=== PATIENT | male | born 1955 | race Caucasian/White ===

== ENCOUNTER 2018-10-18 09:28 | Emergency (ER) | payer MEDICARE, MEDICAID, SELFPAY ==
[2018-10-18 09:32] VITALS: BP 128/115; PULSE 75; RESP 18; TEMP 36.8; O2SAT 98
--- NOTE | 2018-10-18 09:46 | DI.RAD_ITS ---
SYMPTOM/DIAGNOSIS: ATRAUMATIC RT SHOULDER PAIN, WORSE WITH MVT RIGHT SHOULDER: Multiple views. There is mild spurring at the glenohumeral joint and mild hypertrophic changes seen at the acromioclavicular joint. The bones are intact and normally mineralized. The soft tissues are unremarkable. IMPRESSION: Osteoarthritis of the right shoulder.
--- NOTE | 2018-10-18 09:47 | DI.RAD_ITS ---
SYMPTOM/DIAGNOSIS: ATRAUMATIC RT SHOULDER PAIN, WORSE WITH MVT CHEST: PA and lateral. Comparison 01/20/17 The heart is normal in size. The lungs are clear. The mediastinal structures and pleura appear intact. CONCLUSION: Normal chest.
--- NOTE | 2018-10-18 09:49 | ED.GENADUL_ITS ---
Discharge Plan Disposition Patient Disposition: HOME Condition: Good Discharge Details Chief Complaint: Orthopedic Clinical Impression: Acute pain of right shoulder Primary Care Provider: Joon Cool ED Provider: Trever Baron Home Meds and New Rx's Prescriptions: New cyclobenzaprine 10 mg tablet 10 mg PO TID Qty: 14 RF: 0 acetaminophen [Mapap Extra Strength] 500 MG tablet 1,000 mg PO Q6H 5 Days Qty: 60 RF: 0 lidocaine [Lidoderm] 1 PATCH patch 1 patch Topical Q24H Qty: 4 RF: 0 ibuprofen [Motrin IB] 200 MG tablet 600 mg PO Q6H 5 Days Qty: 60 RF: 0 No Action omeprazole magnesium [Prilosec OTC] 20 MG tablet,delayed release (DR/EC) 20 mg PO DAILY RF: 0 acetaminophen [Acetaminophen Extra Strength] 500 MG tablet 1,000 mg PO q6 hr RF: 0 omeprazole 40 mg capsule,delayed release(DR/EC) 40 mg PO DAILY Qty: 90 RF: 3 Discharge Instructions Instructions: Shoulder Pain (ED) Additional Instructions: Please take medications as directed. Please do not operate any heavy machinery or climb ladders or operate firearms while taking the Flexeril. If you notice any worsening of your symptoms, or any new symptoms such as vomiting, diarrhea, fever, chills, shortness of breath, chest pain, numbness, weakness, or fainting , please return immediately to the emergency department for reevaluation. Please follow up with your primary care provider as soon as possible for reassessment and reevaluation. As always, it was a pleasure participating in your medical care today. Referrals: Joon Cool. [Primary Care Provider] - Discharge Data Discharge Date/Time-TO BE ENTERED AT DEPARTURE: 10/18/18 12:00 Medical Decision Making This is a pleasant 63-year-old male who presents for right shoulder pain. He denies any trauma, he does have a history of arthritis. Physical exam demonstrates concern for rotator cuff injury, versus arthritis. Pain is made worse with Neer's testing. Symptoms are notably worse with movement internal and external rotation of the shoulder. Strength is otherwise normal, no signs of neurologic deficit. This patient's symptoms are unlikely to be secondary to a cardiac etiology but because of his age and risk factors, we did get a troponin EKG, both of which are normal. Patient's physical exam is clinically inconsistent with an ACS etiology, x-rays were performed and do demonstrate evidence of notable arthritis in the shoulder, but no evidence of acute fracture or other abnormality. We did utilize NSAIDs and Lidoderm patch, and the patient had mild improvement of his symptoms with this. I did discuss potential opiates and the patient does not want any opiates at this time. Patient does have a sling at home and I recommended that he do utilize this in the time being. I feel that his signs and symptoms are clinically consistent and concerning for potential rotator cuff injury as well as mild impingement syndrome. The patient does have follow-up with his primary care provider within the next 3 days, which I recommend he does keep. We discussed red flags which to return, the importance of continued NSAID use, and potential orthopedic follow-up if his symptoms do not improve the time he follows up with his PCP. I have extensively reviewed the treatment plan and discharge instructions with the patient and their family. I have addressed all patient concerns at this time. The patient and family was made aware of what symptoms to monitor for that would warrant a return to the emergency department. Discussed the plan with the patient and family, they demonstrate verbal understanding and agreement with our assessment and plan at this time. EKG 9: 47 Rate 68, IA 156, QTc 419, QRS 104, sinus rhythm, no significant ST elevations or depressions, inverted T wave in lead III, no Q waves, no significant abnormalities. RIGHT SHOULDER: Multiple views. There is mild spurring at the glenohumeral joint and mild hypertrophic changes seen at the acromioclavicular joint. The bones are intact and normally mineralized. The soft tissues are unremarkable. IMPRESSION: Osteoarthritis of the right shoulder. The heart is normal in size. The lungs are clear. The mediastinal structures and pleura appear intact. CONCLUSION: Normal chest. HPI General Date/Time Provider Initiated Documentation: 10/18/18 09:35 . HPI Narrative: This is a pleasant 63-year-old male who presents today for evaluation of right-sided shoulder and arm pain. Patient states that the pain began around 10 AM, it seemed to come out of nowhere as he was moving his arm and shoulder around. Is located in his right shoulder, he describes it as sharp, with some associated tingling. It is worse with movement of the shoulder in every direction. He did take some Tylenol, but this had no improvement of his symptoms. Patient has known history of arthritis in the right shoulder, but denies any recent trauma. He denies any significant neck pain, or trauma to the neck. He denies any radiation to any other component of his chest neck or hand. He denies any other complaints at this time. He denies any other modifying factors. He denies any recent surgeries, he denies any current IV or illicit drug use,. Related Data Home Medications Medication Instructions Recorded Confirmed omeprazole magnesium [Prilosec OTC] 20 mg PO DAILY 02/03/17 12/02/17 acetaminophen [Acetaminophen Extra 1,000 mg PO q6 hr tab-cap 08/30/17 12/02/17 Strength] omeprazole 40 mg capsule,delayed 40 mg PO DAILY #90 cap 07/13/18 release acetaminophen [Mapap Extra 1,000 mg PO Q6H 5 Days #60 tab 10/18/18 Strength] cyclobenzaprine 10 mg PO TID #14 tab 10/18/18 ibuprofen [Motrin Ib] 600 mg PO Q6H 5 Days #60 tab 10/18/18 lidocaine [Lidoderm] 1 patch TOPICAL Q24H #4 patch 10/18/18 Previous Rx's Medication Instructions Recorded omeprazole 40 mg capsule,delayed 40 mg PO DAILY #90 cap 07/13/18 release acetaminophen [Mapap Extra 1,000 mg PO Q6H 5 Days #60 tab 10/18/18 Strength] cyclobenzaprine 10 mg PO TID #14 tab 10/18/18 ibuprofen [Motrin Ib] 600 mg PO Q6H 5 Days #60 tab 10/18/18 lidocaine [Lidoderm] 1 patch TOPICAL Q24H #4 patch 10/18/18 Allergies Allergy/AdvReac Type Severity Reaction Status Date / Time No Known Allergies Allergy Unverified 03/13/18 09:05 General Stated Complaint: Orthopedic VALENTÍN: 4 Review of Systems Review of Systems All systems reviewed & are unremarkable except as noted in HPI and below PFSH Chronic low back pain Depressive disorder Smoker CT/SPINE (~2003) Colonoscopy - MAC (~2006) Colonoscopy - MAC (02/07/17) LAMINECTOMY MRI/SPINE (~2006) Meniscectomy NASAL POLYP REMOVAL Repair of inguinal hernia Spinal Fusion (~03/1997) Family History Mother No problems noted. Father No problems noted. Sister No problems noted. Sister No problems noted. Sister No problems noted. Grandfather No problems noted. Grandfather No problems noted. Grandmother No problems noted. Sister No problems noted. Grandmother Diabetes Son No problems noted. Son No problems noted. Social History Smoking/Tobacco Use Status: Current-Occasional Exam Narrative Exam Narrative: 1.Const: Well-nourished, Well-developed, appearing stated age 2.Eyes: PERRL, no conjunctival injection, and symmetrical lids. 3.ENT: Atraumatic external nose and ears. Moist MM. Neck: Symmetric, trachea midline, No thyromegaly. 4.CVS: +S1/S2, No murmurs or gallops. Peripheral pulses 2+ and equal in all extremities. Brisk capillary refill in all extremities. 5.RESP: Unlabored respiratory effort. Clear to auscultation bilaterally. No wheezes rales or rhonchi 6.GI: Soft, Nontender/Nondistended, No hepatosplenomegaly. No guarding or rebound. 7.MSK: Normocephalic/Atraumatic, Extremities w/o deformity or ttp No cyanosis or clubbing, Normal movement of all extremities no midline tenderness to palpation over the CTLS spine. Normal ROM in flexion, extension, side bend, and rotation. Patient has +5 out of 5 strength in the lower extremities in dorsiflexion and plantarflexion, knee flexion and extension, hip flexion and extension. There is +2 over 2 dorsalis pedis pulses bilaterally. There is normal sensation to the skin with light touch at the foot, knee, and hip. Normal saddle sensation. Good sensation over the deep sural nerve area bilaterally. Rectal exam deferred. Reflexes are +2 over 4 in the patellar reflex bilaterally. +5 out of 5 strength in the medial, ulnar, radial nerve distribution bilaterally in the hands as well as intact light touch sensation to these dermatomes on the hands. Right shoulder: Patient does have notable worsening of his pain with internal and external rotation of the humerus, as well as abduction, abduction, and flexion and extension. Symptoms are made worse with NEERS testing. No significant focal tenderness on palpation of the shoulder. Normal sensation throughout. No evidence of decreased dermatomal sensation. Capillary refill is brisk, hand dealer sales manager is normal. Normal pronation and supination of the wrist and hand. 8.Skin: Warm, Dry. No rashes or lesions. No evidence suggestive of herpes zoster 9.Neuro: digital business analyst II-XII grossly intact. Sensation grossly intact, no focal neurologic deficits. All 6 cardinal planes of vision are fully intact. No evidence of rotatory or vertical nystagmus. The patient demonstrated a normal [id number], good dexterity. There was no evidence of dysdiadochokinesia. Patient was able to ambulate without difficulty. There was no wide-based gait. Romberg, and [id number] are both normal on testing. Sensation was intact bilaterally as well as muscle strength bilaterally for all extremities. Patient was able to verbalize butter cup with no slurring, or miss pronunciation. 10.Psych: (AAO) x3. Appropriate mood and affect Course Vital Signs Temperature 36.8 C 10/18/18 09:32 Pulse 75 10/18/18 09:32 Respiratory Rate 18 10/18/18 09:32 Blood Pressure 128/115 H 10/18/18 09:32 Pulse Oximetry 98 10/18/18 09:32 Temperature 36.8 C 10/18/18 09:32 Temperature Source Skin 10/18/18 09:32 Pulse 75 10/18/18 09:32 Respiratory Rate 18 10/18/18 09:32 Respiratory Effort 10/18/18 09:35 Blood Pressure 128/115 H 10/18/18 09:32 Blood Pressure Position Sitting 10/18/18 09:32 Pulse Oximetry 98 10/18/18 09:32 Oxygen Delivery Method Room Air 10/18/18 09:32 Oxygen Flow Rate 0 10/18/18 09:32 Pain Level 8 10/18/18 09:32
[2018-10-18 10:18] LABS: Abs Immature Grans 0.01 k/cumm (0.0-0.09); Absolute Basophil Count 0.12 k/cumm (0.0-0.2); Absolute Eosinophil Count 0.21 k/cumm (0.0-0.7); Absolute Lymphocyte Count 1.08 k/cumm (1.2-3.4); Absolute Monocyte Count 0.48 k/cumm (0.11-0.7); Absolute Neutrophil Count 3.45 k/cumm (1.2-6.7); Basophils % 2.2; Eosinophils % 3.9; HCT 42.8 % (40.0-50.0); Immature Grans % 0.2; Lymphocytes % 20.2; Mean Corp. HGB Concentration 32.7 g/dL (32.0-36.0); Mean Corpuscular Volume 91.6 fL (80-95); Mean Platelet Volume 11.9 fL (8.0-11.0); Neutrophils % 64.5; Platelet Count 179 x1000/uL (130-400); RBC 4.67 m/cumm (4.50-6.00); RBC Distribution Width 12.8 % (11.8-14.1); White Blood Cell Count 5.35 k/cumm (4.4-10.8)
[2018-10-18] MEDS: Aspirin 81 MG CHEW 324 MG CH (10:18)
[2018-10-18] MEDS: Cyclobenzaprine 10 MG TAB PO (10:18)
[2018-10-18] MEDS: Lidocaine 5% Patch 1 PATCH TP (10:19)
[2018-10-18] MEDS: Ketorolac 30 MG/ML VIAL 15 MG IVP (10:19)
--- NOTE | 2018-10-18 10:28 | NUR.NOTE ---
# 18 right ac, labs sent, placed on continous cardiac monitoring, patient reports 05/15, patient medicated per MD order. Nursing Note:
[2018-10-18 10:31] VITALS: BP 133/72; PULSE 56; O2SAT 95
[2018-10-18 10:41] LABS: ALT 35 U/L (12-78); AST 19 U/L (15-37); Albumin 3.9 g/dL (3.4-5.0); Alkaline Phosphatase 71 U/L (46-116); Anion Gap 7.1 mmol/L (3-11); BUN 17 mg/dL (7-18); Bilirubin, Total 0.4 mg/dL (0.2-1.0); CO2 30.9 mmol/L (21.0-32.0); Calcium 8.8 mg/dL (8.5-10.1); Chloride 104 mmol/L (98-107); Glucose 102 mg/dL (70-100); Potassium 4.3 mmol/L (3.5-5.1); Sodium 142 mmol/L (136-145)
[2018-10-18 10:43] LABS: Troponin I < 0.02 ng/mL (0.00-0.06)
--- NOTE | 2018-10-18 11:16 | NUR.NOTE ---
returned from xray pain is 7/10, patient visibly uncomfortable Nursing Note:
[2018-10-18 11:17] VITALS: BP 154/82; PULSE 64; RESP 20; O2SAT 96
--- NOTE | 2018-10-18 12:10 | NUR.NOTE ---
MD re-examined patient, pain improved to 1/10 tolerable for patient. IV dc'd discharge and follwo up instruciton provided to patient, patient home with Nursing Note:
== END 2018-10-18 12:00 | disposition home or self-care (01) ==
PROVIDERS: Emergency Provider Student in an Organized Health Care Education/Training Program; PCP Family Medicine
DX: M25.511 Pain in right shoulder (principal); M79.621 Pain in right upper arm
CPT/HCPCS: 36415; 80053; 93005; 96374; 99285; 71046; 73030; 84484; 85025; 93010; J1885

== ENCOUNTER 2018-11-02 11:02 | Emergency (ER) | payer MEDICARE, MEDICAID, SELFPAY ==
[2018-11-02] VITALS (7 sets, daily range): BP systolic 130–175; BP diastolic 72–94; PULSE 63–97; RESP 12–20; TEMP 36.8; O2SAT 95–99
--- NOTE | 2018-11-02 11:09 | DI.CT_ITS ---
SYMPTOM/DIAGNOSIS: SUPRAPUBIC/LLQ PAIN, REFLECTS HIS H/O DIVERTICULITIS. CT ABDOMEN AND PELVIS: The study was conducted according to the usual protocol with intravenous administration of 100 cc Omnipaque 350. There is no acute abnormality involving the lung bases. There is no pleural effusion. The heart is not enlarged. There is no pericardial effusion. The liver, gallbladder, pancreas and spleen are intact. There is no evidence of bowel obstruction. Diffuse diverticulosis is demonstrated particularly involving the distal descending and rectosigmoid colonic segments. There is wall thickening and increased absorption in the adjacent fat is identified. The findings would be consistent with diverticulitis. In addition to the above there is wall thickening extending into the descending colon where multiple diverticula are also seen. Again there is no evidence of intestinal perforation. There is no evidence of free air or free fluid in the intraperitoneal space. There is no evidence of bowel obstruction. The appendix appears normal. The reproductive organs as visualized appear intact with note made of prostatic enlargement and there is some prominence of the seminal vesicles. There is no evidence of a inguinal hernia. A tiny fat containing umbilical hernia is demonstrated. There is no evidence of an aortic aneurysm. Note is made of multiple compression fractures involving the lumbar spine. A mack and pedicle screw device is in place. No acute superimposed bony abnormality is apparent and there is diffuse degenerative disc disease. SUMMARY: Findings consistent with diverticulosis and diverticulitis. This case was discussed with the ER provider immediately following completion of the study.
--- NOTE | 2018-11-02 11:11 | W.ED.GENAD ---
Discharge Plan Disposition Patient Disposition: HOME Condition: Good Discharge Details Chief Complaint: Abd Prob Clinical Impression: Diverticulitis Primary Care Provider: Joon Cool ED Provider: Trever Baron Home Meds and New Rx's Prescriptions: New ciprofloxacin HCl [Cipro] 500 mg tablet 500 mg PO BID 7 Days Qty: 14 RF: 0 metronidazole [Flagyl] 500 mg tablet 500 mg PO TID 7 Days Qty: 21 RF: 0 No Action acetaminophen [Acetaminophen Extra Strength] 500 MG tablet 1,000 mg PO q6 hr RF: 0 omeprazole 40 mg capsule,delayed release(DR/EC) 40 mg PO DAILY Qty: 90 RF: 3 cyclobenzaprine 10 mg tablet 10 mg PO TID Qty: 14 RF: 0 lidocaine [Lidoderm] 1 PATCH patch 1 patch Topical Q24H Qty: 4 RF: 0 Discharge Instructions Instructions: Diverticulitis (ED) Additional Instructions: Please take the antibiotic as directed. Do not take them with any alcohol. If you notice any pain in your joints or ligaments please stop taking them and do not perform any vigorous physical exercise. Please take Tylenol and Motrin as needed for pain. If you notice any worsening of your symptoms, or any new symptoms such as vomiting, diarrhea, fever, chills, shortness of breath, chest pain, numbness, weakness, or fainting , please return immediately to the emergency department for reevaluation. Please follow up with your primary care provider as soon as possible for reassessment and reevaluation. As always, it was a pleasure participating in your medical care today. Referrals: Joon Cool [Primary Care Provider] - Medical Decision Making This is a 63-year-old male who presents with suprapubic and left lower quadrant abdominal pain which he feels is consistent similar to his last episode of diverticulitis. He denies any recent surgeries. He does have a history of 2 inguinal surgeries were repaired. He has had no vomiting, but does admit to some diarrhea. He has been sticking to a diet of broth for the last 48 hours secondary to the discomfort. He does admit to a suprapubic location of his symptoms, however he denies any dysuria, increased urinary frequency, or hematuria. Testicular exam is normal and inconsistent with torsion. We will get a CT scan to evaluate for diverticulitis, and check a UA. 2:02 PM Patient's laboratory workup has returned relatively benign, no white count, normal renal function, UA is negative for signs of infection. CT scan results have returned and per the radiologist there is evidence of mild diverticulitis on the left, no other acute process in the abdomen and pelvis. The patient's pain is well controlled. He has reassuring vital signs. I feel his signs and symptoms are clinically correlative with diverticulitis. We will give him his first dose of Cipro and Flagyl here in the ED. with a long discussion about appropriate diet, and return symptoms. I have extensively reviewed the treatment plan and discharge instructions with the patient. I have addressed all patient concerns at this time. The patient was made aware of what symptoms to monitor for that would warrant a return to the emergency department. Discussed the plan with the patient, they demonstrate verbal understanding and agreement with our assessment and plan at this time. HPI General Date/Time Provider Initiated Documentation: 11/02/18 11:09. HPI Narrative: This is a 63-year-old male with a past medical history of diverticulitis who presents today for 48 hours of abdominal pain. Patient states that he has had some associated diarrhea, and this morning he noticed small amounts of what he thought were blood clots. He denies any bright red blood, or recent melena. The patient denies any fever or chills. He denies any radiation of his pain and states that it is only located in the suprapubic region. He denies any dysuria, hematuria or increase in urinary frequency. He denies any testicular tenderness. He states that his symptoms are similar to his previous episode of diverticulitis. Past surgical history is positive for bilateral inguinal hernia repairs. He denies any worsening of this or any recent straining. He has no other complaints at this time. No other modifying or aggravating factors. He denies any pertinent family history, IV or illicit drug use. Related Data Home Medications Medication Instructions Recorded Confirmed acetaminophen [Acetaminophen Extra 1,000 mg PO q6 hr tab-cap 08/30/17 10/22/18 Strength] omeprazole 40 mg capsule,delayed 40 mg PO DAILY #90 cap 07/13/18 10/22/18 release cyclobenzaprine 10 mg PO TID #14 tab 10/18/18 10/22/18 lidocaine [Lidoderm] 1 patch TOPICAL Q24H #4 patch 10/18/18 10/22/18 ciprofloxacin HCl [Cipro] 500 mg PO BID 7 Days #14 tab 11/02/18 metronidazole [Flagyl] 500 mg PO TID 7 Days #21 tab 11/02/18 Previous Rx's Medication Instructions Recorded omeprazole 40 mg capsule,delayed 40 mg PO DAILY #90 cap 07/13/18 release cyclobenzaprine 10 mg PO TID #14 tab 10/18/18 lidocaine [Lidoderm] 1 patch TOPICAL Q24H #4 patch 10/18/18 ciprofloxacin HCl [Cipro] 500 mg PO BID 7 Days #14 tab 11/02/18 metronidazole [Flagyl] 500 mg PO TID 7 Days #21 tab 11/02/18 Allergies Allergy/AdvReac Type Severity Reaction Status Date / Time No Known Allergies Allergy Unverified 10/22/18 14:41 General Stated Complaint: Abd Prob VALENTÍN: 3 Review of Systems Review of Systems All systems reviewed & are unremarkable except as noted in HPI and below PFSH Medical History Chronic low back pain Depressive disorder Smoker Surgical History CT/SPINE (~2003) Colonoscopy - MAC (~2006) Colonoscopy - MAC (02/07/17) LAMINECTOMY MRI/SPINE (~2006) Meniscectomy NASAL POLYP REMOVAL Repair of inguinal hernia Spinal Fusion (~03/1997) Family History Mother No problems noted. Father No problems noted. Sister No problems noted. Sister No problems noted. Sister No problems noted. Grandfather No problems noted. Grandfather No problems noted. Grandmother No problems noted. Sister No problems noted. Grandmother Diabetes Son No problems noted. Son No problems noted. Social History Smoking/Tobacco Use Status: Current-Occasional Exam Narrative Exam Narrative: 1.Const: Well-nourished, Well-developed, appearing stated age 2.Eyes: PERRL, no conjunctival injection, and symmetrical lids. 3.ENT: Atraumatic external nose and ears. Moist MM. Neck: Symmetric, trachea midline, No thyromegaly. 4.CVS: +S1/S2, No murmurs or gallops. Peripheral pulses 2+ and equal in all extremities. Brisk capillary refill in all extremities. 5.RESP: Unlabored respiratory effort. Clear to auscultation bilaterally. No wheezes rales or rhonchi 6.GI: Soft,Nondistended, No hepatosplenomegaly. No guarding or rebound. Notable tenderness in the suprapubic and left lower quadrant region. No guarding or rebound, no pain at McBurney's point, negative Bowen sign. Male genitalia demonstrates normal circumcised male with evidence of vitiligo. Nontender testicles. Normal cremasteric reflex. No evidence of inguinal or scrotal herniation. No significant CVA tenderness. 7.MSK: Normocephalic/Atraumatic, Extremities w/o deformity or ttp No cyanosis or clubbing, Normal movement of all extremities 8.Skin: Warm, Dry. No rashes or lesions. 9.Neuro: multifocal button inspector II-XII grossly intact. Sensation grossly intact, no focal neurologic deficits. 10.Psych: (AAO) x3. Appropriate mood and affect Course Vital Signs Temperature 36.8 C 11/02/18 11:05 Pulse 97 H 11/02/18 11:05 Respiratory Rate 20 11/02/18 11:05 Pulse Oximetry 99 11/02/18 11:05 Temperature 36.8 C 11/02/18 11:05 Temperature Source Temporal Artery Scan 11/02/18 11:05 Pulse 97 H 11/02/18 11:05 Respiratory Rate 20 11/02/18 11:05 Respiratory Effort Non-Labored 11/02/18 11:05 Blood Pressure Position Supine 11/02/18 11:05 Pulse Oximetry 99 11/02/18 11:05 Oxygen Delivery Method Room Air 11/02/18 11:05 Oxygen Flow Rate 0 11/02/18 11:05
[2018-11-02] MEDS: Lactated Ringers 1,000 ML 1000 ML IV (11:25)
[2018-11-02] MEDS: MORPHine 10 MG/ML VIAL 4 MG IVP ×2 (11:25→14:13)
[2018-11-02 11:26] LABS: Abs Immature Grans 0.02 k/cumm (0.0-0.09); Absolute Basophil Count 0.09 k/cumm (0.0-0.2); Absolute Eosinophil Count 0.23 k/cumm (0.0-0.7); Absolute Lymphocyte Count 1.05 k/cumm (1.2-3.4); Absolute Monocyte Count 0.59 k/cumm (0.11-0.7); Absolute Neutrophil Count 4.96 k/cumm (1.2-6.7); Basophils % 1.3; Eosinophils % 3.3; HCT 44.5 % (40.0-50.0); HGB 14.7 g/dL (13.5-17.5); Immature Grans % 0.3; Lymphocytes % 15.1; Mean Corpuscular Volume 90.8 fL (80-95); Mean Platelet Volume 11.3 fL (8.0-11.0); Monocytes % 8.5; Neutrophils % 71.5; Platelet Count 214 x1000/uL (130-400); RBC Distribution Width 12.6 % (11.8-14.1); White Blood Cell Count 6.94 k/cumm (4.4-10.8)
[2018-11-02 11:39] LABS: Bilirubin Negative (Negative); Blood Negative (Negative); Clarity Clear; Glucose Negative (Negative); Ketones Negative (Negative); Leukocyte Esterase Negative (Negative); Nitrite Negative (Negative); Specific Gravity <= 1.005 (1.005-1.025); Urobilinogen 0.2 EU/dL (Up TO 0.2); pH 6.5 (5-8)
[2018-11-02 11:40] LABS: ALT 50 U/L (12-78); AST 30 U/L (15-37); Alkaline Phosphatase 76 U/L (46-116); Anion Gap 8.6 mmol/L (3-11); BUN 11 mg/dL (7-18); Bilirubin, Total 0.5 mg/dL (0.2-1.0); CO2 28.4 mmol/L (21.0-32.0); Calcium 9.1 mg/dL (8.5-10.1); Chloride 102 mmol/L (98-107); Glucose 137 mg/dL (70-100); Sodium 139 mmol/L (136-145); Total Protein 7.5 g/dL (6.4-8.2)
--- NOTE | 2018-11-02 12:08 | NUR.NOTE ---
Nursing Note:Pt off unit at CT
[2018-11-02] MEDS: Omnipaque 350 MG/ML 100 ML BTL IJ (12:10)
[2018-11-02] MEDS: CIPROFLOXACIN 400 MG/200 ML BAG 200 MG IVPB (13:44)
[2018-11-02] MEDS: Ketorolac 30 MG/ML VIAL IVP (14:13)
[2018-11-02] MEDS: MetroNIDAZOLE 500 MG/100 ML BAG 100 MG IVPB ×2 (14:48→14:50)
--- NOTE | 2018-11-02 15:07 | NUR.NOTE ---
Nursing Note: Flagyl infusing, pt will be discharged once finished
== END 2018-11-02 15:58 | disposition home or self-care (01) ==
PROVIDERS: Emergency Provider Student in an Organized Health Care Education/Training Program; PCP Family Medicine
DX: K57.32 Diverticulitis of large intestine without perforation or abscess without bleeding (principal)
CPT/HCPCS: 36415; 80053; 96361; 96365; 96375; 99285; 74177; 81003; 85025; 99284; J0744; J1885; J2270; J3490

== ENCOUNTER 2019-05-13 12:39 | Emergency (ER) | payer MEDICARE, MEDICAID, SELFPAY ==
[2019-05-13 12:46] VITALS: BP 148/89; PULSE 74; RESP 16; TEMP 36.9; O2SAT 95
--- NOTE | 2019-05-13 14:04 | ED.GENADUL_ITS ---
Discharge Plan Disposition Patient Disposition: HOME Discharge Details Chief Complaint: RespSymp Primary Care Provider: Joon Cool ED Provider: Porfirio Metz Home Meds and New Rx's Prescriptions: New benzonatate 200 mg capsule 200 mg PO TID PRN (Reason: cough) Qty: 30 RF: 0 doxycycline hyclate 100 mg tablet 100 mg PO BID Qty: 14 RF: 0 Continued omeprazole 40 mg capsule,delayed release(DR/EC) 40 mg PO DAILY Qty: 90 RF: 3 Discharge Data Discharge Date/Time-TO BE ENTERED AT DEPARTURE: 05/13/19 14:34 Medical Decision Making URI type symptoms for 10 days, not improving, initially fever chills that are resolved, worsening cough and chest congestion. Physical exam shows clear lung sounds, mild maxillary sinus tenderness mildly erythematous posterior pharynx otherwise unremarkable HEENT cardiac and respiratory exam. staff psychiatrist initiated protocol for rapid strep testing which was negitive. given symptoms are not improving plan to place patient on antibiotic for coverage of bacterial source of illness but also I do consider viral etiology. Patient has no meningeal signs, has no evidence of sepsis on exam on review of vital signs, patient otherwise stable. Patient placed up on doxycycline and antibiotic precautions were discussed including photosensitivity while on medication. Return precautions discussed. After discussion of diagnosis and plan of care patient has no further needs, questions, or concerns and states clear understanding to return to the emergency department for any worsening symptoms. HPI General Mode of arrival: ambulatory . Date/Time Provider Initiated Documentation: 05/13/19 13:10 . Limitations to Documentation: no limitations . Information obtained by: patient and RN notes reviewed . History of Present Illness 64 year old M presents to the emergency department with the chief complaint of cold symptoms, described as mild, with intensity rated at 2. Quality is described as aching, and is localized to the chest. Patient started experiencing this day(s) (10) and it has been constant. No relieving factors improve symptom(s), No exacerbating factors reported . Patient did receive the following treatments prior to arrival, none Related Data Home Medications Medication Instructions Recorded Confirmed omeprazole 40 mg capsule,delayed 40 mg PO DAILY #90 cap 07/13/18 12/28/18 release benzonatate 200 mg PO TID PRN #30 cap 05/13/19 doxycycline hyclate 100 mg PO BID #14 tab 05/13/19 Previous Rx's Medication Instructions Recorded omeprazole 40 mg capsule,delayed 40 mg PO DAILY #90 cap 07/13/18 release benzonatate 200 mg PO TID PRN #30 cap 05/13/19 doxycycline hyclate 100 mg PO BID #14 tab 05/13/19 Allergies Allergy/AdvReac Type Severity Reaction Status Date / Time No Known Allergies Allergy Unverified 12/28/18 13:57 General Stated Complaint: RespSymp VALENTÍN: 3 Review of Systems Constitutional Denies body ache(s), Denies chills, Denies fever(s), Denies headache(s) and Reports malaise Eyes Denies eye discharge ENT Reports as per HPI, Denies ear discharge, Reports otalgia, Denies headache(s), Reports nasal congestion, Reports nasal discharge, Denies neck pain, Reports sinus pressure, Reports sore throat and Denies throat swelling Cardiovascular Denies chest pain and Denies dyspnea Respiratory Reports cough, Reports pain with cough and Denies dyspnea Musculoskeletal Denies joint swelling and Denies neck pain Integumentary/Breasts Denies rash Neurologic Denies headache(s) Allergic/Immunologic Denies throat swelling [facility] Medical History Chronic low back pain Depressive disorder Smoker Surgical History Colonoscopy - MAC (~2006) Colonoscopy - MAC (02/07/17) CT/SPINE (~2003) LAMINECTOMY Meniscectomy MRI/SPINE (~2006) NASAL POLYP REMOVAL Repair of inguinal hernia Spinal Fusion (~03/1997) Family History Mother No problems noted. Father No problems noted. Sister No problems noted. Sister No problems noted. Sister No problems noted. Grandfather No problems noted. Grandfather No problems noted. Grandmother No problems noted. Sister No problems noted. Grandmother Diabetes Son No problems noted. Son No problems noted. Social History Smoking/Tobacco Use Status: Current-Occasional Tobacco Type: e-cigarettes Drug use: Occasionally Substance use type: marijuana Do you feel safe at home: Yes Do you feel safe in your relationship?: Yes Exam Const General: cooperative, comfortable and no acute distress Orientation: alert and awake HENMT Head: normal to inspection, normocephalic and atraumatic Ears: hearing grossly normal bilaterally, external ears normal and TM's normal bilaterally General nose exam: external nose normal Face and sinus: no erythema and sinus tenderness frontal and maxillary Mouth: oral mucosae normal, no drooling, no muffled voice and no trismus Throat: tonsils normal, uvula midline and posterior oropharynx abnormal erythema Neck Neck: normal visual inspection, full ROM, no lymphadenopathy, no meningeal signs, trachea midline and supple Resp Effort & Inspection: normal respiratory effort, able to speak in complete sentences and cough Quality of cough: dry Auscultation: clear to auscultation bilaterally Cardio Rate: regular rate Rhythm: regular rhythm Heart Sounds: S1 normal, S2 normal, normal S1 and S2, no click, no gallops, no murmurs and no rubs Skin General skin exam: no rashes or lesions noted and dry skin (warm) Neuro General: alert, awake, oriented x3, gait normal and moves all extremities Cognition: normal cognition Speech: speech normal Course Vital Signs Temperature 36.9 C 05/13/19 12:46 Pulse 74 05/13/19 12:46 Respiratory Rate 16 05/13/19 12:46 Blood Pressure 148/89 H 05/13/19 12:46 Pulse Oximetry 95 05/13/19 12:46 Temperature 36.9 C 05/13/19 12:46 Temperature Source Oral 05/13/19 12:46 Pulse 74 05/13/19 12:46 Respiratory Rate 16 05/13/19 12:46 Respiratory Effort Non-Labored 05/13/19 12:52 Respiratory Depth Normal 05/13/19 12:52 Blood Pressure 148/89 H 05/13/19 12:46 Pulse Oximetry 95 05/13/19 12:46 Oxygen Delivery Method Room Air 05/13/19 12:46 Oxygen Flow Rate 0 05/13/19 12:46 Pain Level 2 05/13/19 12:46 Lab/Test Results Lab/Test Results: 05/13/19 12:56 Pharynx Streptococcus Screen ([facility]) - Pending POC Strep Test-KAI(Rapid) Start: 05/13/19 12:55 Freq: .Rapid Strep Test Status: Active Protocol: Document 05/13/19 13:04 SGL (Rec: 05/13/19 13:04 SGL [id number]) Strep test-KAI(Rapid)-POC POC-Strep test-KAI (Rapid) Negative POC-Strep test-KAI (Rapid) Negative
== END 2019-05-13 14:34 | disposition home or self-care (01) ==
PROVIDERS: Emergency Provider Nurse Practitioner Family; PCP Family Medicine
DX: J06.9 Acute upper respiratory infection, unspecified (principal); F17.210 Nicotine dependence, cigarettes, uncomplicated
CPT/HCPCS: 87880; 99283; 87081

== ENCOUNTER 2020-06-26 03:19 | Outpatient (CLI) | payer MEDICARE, MEDICAID, SELFPAY ==
--- NOTE | 2020-06-26 06:15 | DI.US_ITS ---
EXAM: US AAA SCREENING CLINICAL HISTORY: screening for AAA,H/O TOBACCO ABUSE,Z87.891 FINDINGS: Abdominal Aorta: Proximal: 3.0 cm Mid: 2.7 cm Distal: 2.4 cm Iliacs: Right: 1.5 cm Left: 1.4 cm Minimal atherosclerotic disease is seen. IMPRESSION: No evidence of abdominal aortic aneurysm. DATA REPOSITORY:
== END 2020-06-26 03:39 ==
PROVIDERS: PCP Family Medicine; Visit Provider Family Medicine
DX: Z87.891 Personal history of nicotine dependence (principal)
CPT/HCPCS: 76706

== ENCOUNTER 2020-09-11 07:45 | Emergency (ER) | payer MEDICARE, MEDICAID, SELFPAY ==
[2020-09-11 07:53] VITALS: BP 143/103; PULSE 75; RESP 18; TEMP 36.2; O2SAT 97
[2020-09-11 08:20] LABS: HCT 47.4 % (40.0-50.0); HGB 15.1 g/dL (13.5-17.5); MCH 28.7 pg (27.0-33.0); MCHC 31.9 % (32.0-36.0); MCV 90.1 fL (80-95); MPV 11.6 fL (8.0-11.0); Platelet Count 278 10^3/uL (130-400); RBC 5.26 10^6/uL (4.36-5.78); RDW 12.7 % (11.8-14.1); RDW-SD 42.1 fL
--- NOTE | 2020-09-11 08:25 | ED.GENADUL_ITS ---
Discharge Plan Disposition Patient Disposition: HOME Condition: Improving Discharge Details Clinical Impression: Colitis, Abdominal pain Primary Care Provider: Joon Cool ED Provider: Alberta Fontenot Home Meds and New Rx's Prescriptions: New ciprofloxacin HCl 500 mg tablet 500 mg PO BID 10 Days Qty: 20 RF: 0 metronidazole [Flagyl] 500 mg tablet 500 mg PO BID 10 Days Qty: 20 RF: 0 prochlorperazine maleate [Compazine] 10 mg tablet 10 mg PO TID PRN (Reason: nausea and vomiting) Qty: 7 RF: 0 Continued omeprazole 40 mg capsule,delayed release(DR/EC) 40 mg PO DAILY Qty: 90 RF: 3 Discharge Instructions Instructions: Abdominal Pain (ED), Colitis (ED) Additional Instructions: Drink plenty of fluids and get plenty of rest. Alternate tylenol and motrin as needed and directed for pain. Take the antibiotics until finished. Follow-up with your primary care doctor in 1 week. Follow-up with general surgery for further evaluation if your symptoms persist. Return to the emergency department with any worsening or new concerning symptoms such as fever, worsening pain or persistent vomiting. Discharge Data Discharge Date/Time-TO BE ENTERED AT DEPARTURE: 09/11/20 11:46 Discharge Physician: Alberta Fontenot Medical Decision Making 0800 -- 65-year-old male with a history of diverticulitis presents with lower abdominal pain, diarrhea and vomiting since yesterday. Blood pressure mildly hypertensive, patient appears uncomfortable but afebrile. He has tenderness to palpation in the suprapubic and left lower quadrant r egion. Differential diagnosis includes acute diverticulitis, colitis, gastroenteritis, kidney stone. Will place an IV, bolus IV fluids, screening labs, urinalysis, CT abdomen and pelvis and give a dose of morphine and Zofran and reassess. 1000 -- Labs reviewed and note a normal white blood cell count 11.3. Normal electrolytes. Urinalysis negative. CT abdomen and pelvis notes 1. Bowel wall thickening and pericolonic inflammatory changes predominantly involving the distal transverse colon and proximal descending colon. The findings likely reflect a infectious or inflammatory colitis. There is diverticular disease in the descending and sigmoid colon. 2. No abscess or free air. As patient's symptoms are similar to his previous diverticulitis, his white cou nt is 11.3, will treat with Cipro and Flagyl. He had some return of pain and was given Toradol with complete relief and was requesting to go home. We will send with prescriptions for Cipro and Flagyl. Advised to follow up with the primary care doctor for re-evaluation. Usual and customary return precautions given prior to discharge. Medical Records Medical records reviewed: Yes I reviewed the patient's medical records. Imaging Data Radiologic Study: Radiologist's impression: CT ABDOMEN PELVIS W CLINICAL HISTORY: LLQ abd pain,h/o diverticulitis,r/o diverticulitis TECHNIQUE: Imaging Protocol: Axial computed tomography images with coronal and sagittal reformatted images were created and reviewed CONTRAST MATERIAL: Intravenous: Omnipaque 350 Contrast volume:100 mL Oral: No FINDINGS: ABDOMEN: Lung Bases: Normal where visualized. Liver: Normal density. No measurable mass. Portal, Superior Mesenteric, and Splenic Veins: Unremarkable. Gallbladder and Biliary Tract: No radiodense calculus or dilation. Pancreas: Normal density, no abnormal calcifications or inflammatory process. Spleen: Normal. Adrenals: Stable left adrenal nodule. Right adrenal gland unremarkable. Kidneys: Normal size, contour and axis. No radiodense stones or obstructive uropathy. Small simple cyst in the left kidney. Abdominal Aorta: Abdominal portion non-dilated. Mild atherosclerosis. Bowel: There is bowel wall thickening seen in the distal transverse colon and proximal descending colon. The findings are most suggestive of an nonspecific inflammatory or infectious colitis. No free air or abscess. No evidence of bowel obstruction. Appendix is unremarkable. Colonic diverticulosis. No evidence of acute diverticulitis. Peritoneal Cavity: No ascites, collection or mesenteric inflammatory response. Findings of a prior right inguinal repair. Lymph Nodes: Within normal limits. Bones: Several old lumbar compression fractures are seen. There again seen posterior spinal rods and pedicle screws extending from C2 L2 through L4. Degenerative changes are seen in the spine. No new compression deformities are present. Soft Tissues: Unremarkable. PELVIS: Bladder: Symmetric distention, no gross wall thickening. Reproductive Organs: Mildly enlarged prostate gland. Lymph Nodes: Within normal limits. Bones: Please see above. IMPRESSION: 1. Bowel wall thickening and pericolonic inflammatory changes predominantly involving the distal transverse colon and proximal descending colon. The findings likely reflect a infectious or inflammatory colitis. There is diverticular disease in the descending and sigmoid colon. 2. No abscess or free air. 3. Findings were discussed with the emergency department on the date of the examination. Lab Data Lab results reviewed: Yes I reviewed the patient's lab results. Labs: Laboratory Tests Range/Units 09/11/20 09/11/20 09/11/20 08:04 08:04 08:04 WBC (4.4-10.8) 10^3/uL 11.30 H RBC (4.36-5.78) 10^6/uL 5.26 Hgb (13.5-17.5) g/dL 15.1 Hct (40.0-50.0) % 47.4 MCV (80-95) fL 90.1 MCH (27.0-33.0) pg 28.7 MCHC (32.0-36.0) % 31.9 L RDW (11.8-14.1) % 12.7 Plt Count (130-400) 10^3/uL 278 MPV (8.0-11.0) fL 11.6 H Sodium (136-145) mmol/L 140 Potassium (3.5-5.1) mmol/L 3.9 Chloride (98-107) mmol/L 102 Carbon Dioxide (21.0-32.0) mmol/L 27.1 Anion Gap (3-11) mmol/L 10.9 BUN (7-18) mg/dL 8 Creatinine (0.70-1.30) mg/dL 1.24 Estimated GFR/1.73 m2 (mL/min/1.73m2) 58.69 Glucose (74-106) mg/dL 97 Calcium (8.5-10.1) mg/dL 9.2 Total Bilirubin (0.2-1.0) mg/dL 0.6 Conjugated Bilirubin (0.00-0.20) mg/dL 0.10 AST (15-37) U/L 19 ALT (16-63) U/L 32 Alkaline Phosphatase (46-116) U/L 80 Total Protein (6.4-8.2) g/dL 7.6 Albumin (3.4-5.0) g/dL 4.0 Lipase (73-393) U/L Urine Color (Yellow) Urine Clarity (Clear) Urine pH (5-8) Ur Specific [place] (1.005-1.025) Urine Protein (Negative) mg/dL Urine Ketones (Negative) mg/dL Urine Blood (Negative) Urine Nitrite (Negative) Urine Bilirubin (Negative) Urine Urobilinogen (Up TO 0.2) EU/dL Ur Leukocyte Esterase (Negative) Urine Glucose (Negative) mg/dL Range/Units 09/11/20 09/11/20 08:04 09:51 WBC (4.4-10.8) 10^3/uL RBC (4.36-5.78) 10^6/uL Hgb (13.5-17.5) g/dL Hct (40.0-50.0) % MCV (80-95) fL MCH (27.0-33.0) pg MCHC (32.0-36.0) % RDW (11.8-14.1) % Plt Count (130-400) 10^3/uL MPV (8.0-11.0) fL Sodium (136-145) mmol/L Potassium (3.5-5.1) mmol/L Chloride (98-107) mmol/L Carbon Dioxide (21.0-32.0) mmol/L Anion Gap (3-11) mmol/L BUN (7-18) mg/dL Creatinine (0.70-1.30) mg/dL Estimated GFR/1.73 m2 (mL/min/1.73m2) Glucose (74-106) mg/dL Calcium (8.5-10.1) mg/dL Total Bilirubin (0.2-1.0) mg/dL Conjugated Bilirubin (0.00-0.20) mg/dL AST (15-37) U/L ALT (16-63) U/L Alkaline Phosphatase (46-116) U/L Total Protein (6.4-8.2) g/dL Albumin (3.4-5.0) g/dL Lipase (73-393) U/L 52 Urine Color (Yellow) Yellow Urine Clarity (Clear) Clear Urine pH (5-8) 7.0 Ur Specific [place] (1.005-1.025) 1.020 Urine Protein (Negative) mg/dL Negative Urine Ketones (Negative) mg/dL Negative Urine Blood (Negative) Negative Urine Nitrite (Negative) Negative Urine Bilirubin (Negative) Negative Urine Urobilinogen (Up TO 0.2) EU/dL 0.2 Ur Leukocyte Esterase (Negative) Negative Urine Glucose (Negative) mg/dL Negative HPI General Mode of arrival: ambulatory . Date/Time Provider Initiated Documentation: 09/11/20 08:19 . Limitations to Documentation: no limitations . Information obtained by: patient . HPI Narrative: Patient is a 65-year-old male with a history of diverticulitis and hernia repair who presents with lower abdominal pain since yesterday. He states the pain is constant, aching with intermittent sharp episodes. He states the pain is currently 9/10. States he has not taken anything for pain today. He states his symptoms feel similar with previous episodes of diverticulitis. He also admits to a few episodes of watery brown diarrhea and one episode of vomiting last night. He denies any recent travel, recent known sick contacts, chest pain, shortness of breath, urinary symptoms. Related Data Home Medications Medication Instructions Recorded Confirmed omeprazole 40 mg capsule,delayed 40 mg PO DAILY #90 cap 06/02/20 09/11/20 release ciprofloxacin HCl 500 mg PO BID 10 Days #20 tab 09/11/20 metronidazole [Flagyl] 500 mg PO BID 10 Days #20 tab 09/11/20 prochlorperazine maleate 10 mg PO TID PRN #7 tab 09/11/20 [Compazine] Previous Rx's Medication Instructions Recorded omeprazole 40 mg capsule,delayed 40 mg PO DAILY #90 cap 06/02/20 release ciprofloxacin HCl 500 mg PO BID 10 Days #20 tab 09/11/20 metronidazole [Flagyl] 500 mg PO BID 10 Days #20 tab 09/11/20 prochlorperazine maleate 10 mg PO TID PRN #7 tab 09/11/20 [Compazine] Allergies Allergy/AdvReac Type Severity Reaction Status Date / Time No Known Allergies Allergy Unverified 09/11/20 07:57 General Stated Complaint: Abd Prob VALENTÍN: 3 Review of Systems All systems reviewed & are unremarkable except as noted in HPI and below Constitutional Constitutional: Reports as per HPI, Denies chills and Denies fever(s) Eyes Eyes: Denies blurry vision ENT Ears, Nose, Mouth, and Throat: Denies dizziness, Denies sore throat and Denies throat swelling Cardiovascular Cardiovascular: Denies chest pain and Denies dyspnea Respiratory Respiratory: Denies cough and Denies dyspnea Gastrointestinal Gastrointestinal: Reports abdominal pain, Reports diarrhea and Reports vomiting Genitourinary Genitourinary: Denies hematuria and Denies dysuria Musculoskeletal Musculoskeletal: Denies back pain and Denies numbness Integumentary/Breasts Skin/Breast: Denies lesions and Denies rash Neurologic Neurologic: Denies dizziness, Denies localized weakness and Denies numbness Allergic/Immunologic Allergic/Immunologic: Denies throat swelling [facility] Medical History (Updated 09/11/20 @ 11:31 by Alberta Fontenot DO) Chronic low back pain Depressive disorder Smoker Surgical History Colonoscopy - MAC (~2006) Colonoscopy - MAC (02/07/17) CT/SPINE (~2003) LAMINECTOMY L2,L3,L4 03/02/18 [place]L5 [place] [facility] [place]iscectomy RIGHT X 3 LEFT x 2 MRI/SPINE (~2006) NASAL POLYP REMOVAL Repair of inguinal hernia RIGHT Spinal Fusion (~03/1997) L2,L3,L4 Family History Sister No problems noted. Sister No problems noted. Sister No problems noted. Maternal Grandfather No problems noted. Paternal Grandfather No problems noted. Maternal Grandmother No problems noted. Sister No problems noted. Paternal Grandmother Diabetes Son No problems noted. Son No problems noted. Mother , 97 Alcohol abuse Father , 74 No problems noted. Social History Smoking/Tobacco Use Status: Former Tobacco Use Tobacco: How many years used: 25 Quit status: considering quitting (vapes) Smoking risk assessment performed?: Yes Alcohol Intake: current Alcohol Intake frequency: a few times a week Alcohol type: beer Drug use: Occasionally Substance use type: marijuana Caregiver/Support person: No Household members: spouse Housing: house Communication Needs: None Do you need help understanding health information?: Never Pets and animals: Yes Pets and animals: cat(s) and dog(s) Sexually active: Yes Do you think of yourself as: straight/heterosexual Current gender identity: male What is your relationship status?: How often do you talk on the phone with friends or family?: once per week How often do you get together with friends or relatives?: once per week How often do you attend jewish or gnosticist services?: 1-3 times per year Do you belong to any clubs or organized social groups?: yes Panel score (0-1 are the most socially isolated patients): 2 What type of physical activity do you participate in: walking Duration: 15-30 minutes/day Frequency: 5-6 times per week Sylvia/Lutheran: Spiritism Special sylvia needs: No Seatbelt use: always Helmet use: Yes Helmet use: always Drive intox or ride w/intox tractor driver: No Do you feel safe at home: Yes Do you feel safe in your relationship?: Yes Exam Const General: cooperative, healthy appearing and uncomfortable Orientation: alert, awake and oriented x3 HENMT Head: normal to inspection Face and sinus: normal facial exam Eyes General: appearance normal, both eyes and all related structures EOM: EOM intact bilaterally Neck Neck: normal visual inspection and No submandibular swelling Lymphatic: no lymphadenopathy noted Chest Chest: normal inspection of the chest and no tenderness Resp Effort & Inspection: normal respiratory effort and able to speak in complete sentences Auscultation: clear to auscultation bilaterally Cardio Rate: regular rate Rhythm: regular rhythm GI Inspection: normal to inspection Palpation: soft, not firm, not rigid and tender in the LLQ and suprapubicly Auscultation: hypoactive bowel sounds Skin General skin exam: no rashes or lesions noted Neuro General: patient alert, patient awake and patient oriented x3 Cognition: normal cognition Speech: speech normal Motor: muscle tone normal throughout Sensory Exam: no sensory deficits noted Extrem General: normal to inspection, full ROM, capillary refill normal, no calf tenderness bilaterally and no edema Psych Appearance: grossly normal Mental Status: mental status grossly normal Speech and Movement: speech and movement normal Affect: normal affect Course Vital Signs Vital signs: Vital Signs Temperature 97.2 F L 09/11/20 07:53 Pulse 75 09/11/20 07:53 Respiratory Rate 18 09/11/20 07:53 Blood Pressure 143/103 H 09/11/20 07:53 Pulse Oximetry 97 09/11/20 07:53 Temperature 97.2 F L 09/11/20 07:53 Temperature Source Temporal Artery Scan 09/11/20 07:53 Pulse 75 09/11/20 07:53 Respiratory Rate 18 09/11/20 07:53 Respiratory Effort Non-Labored 09/11/20 07:58 Blood Pressure 143/103 H 09/11/20 07:53 Blood Pressure Position Sitting 09/11/20 07:53 Pulse Oximetry 97 09/11/20 07:53 Oxygen Delivery Method Room Air 09/11/20 07:53 Oxygen Flow Rate 0 09/11/20 07:53 Pain Level 5 09/11/20 07:58 Lab/Test Results Lab/Test Results: Laboratory Tests Range/Units 09/11/20 08:04 WBC (4.4-10.8) 10^3/uL 11.30 H RBC (4.36-5.78) 10^6/uL 5.26 Hgb (13.5-17.5) g/dL 15.1 Hct (40.0-50.0) % 47.4 MCV (80-95) fL 90.1 MCH (27.0-33.0) pg 28.7 MCHC (32.0-36.0) % 31.9 L RDW (11.8-14.1) % 12.7 Plt Count (130-400) 10^3/uL 278 MPV (8.0-11.0) fL 11.6 H
[2020-09-11 08:42] LABS: Lipase 52 U/L (73-393)
[2020-09-11 08:45] LABS: ALT 32 U/L (16-63); AST 19 U/L (15-37); Alkaline Phosphatase 80 U/L (46-116); Anion Gap 10.9 mmol/L (3-11); BUN 8 mg/dL (7-18); Bilirubin, Total 0.6 mg/dL (0.2-1.0); CO2 27.1 mmol/L (21.0-32.0); CREATININE 1.24 mg/dL (0.70-1.30); Calcium 9.2 mg/dL (8.5-10.1); Chloride 102 mmol/L (98-107); Estimated GFR 58.69 (mL/min/1.73m2); Glucose 97 mg/dL (74-106); Potassium 3.9 mmol/L (3.5-5.1); Sodium 140 mmol/L (136-145); Total Protein 7.6 g/dL (6.4-8.2)
[2020-09-11] MEDS: Normal Saline 1,000 ML 1000 ML IV (08:56)
[2020-09-11] MEDS: Ondansetron 4 MG/2 ML VIAL IVP (08:56)
--- NOTE | 2020-09-11 09:33 | DI.CT_ITS ---
EXAM: CT ABDOMEN PELVIS W CLINICAL HISTORY: LLQ abd pain,h/o diverticulitis,r/o diverticulitis TECHNIQUE: Imaging Protocol: Axial computed tomography images with coronal and sagittal reformatted images were created and reviewed CONTRAST MATERIAL: Intravenous: Omnipaque 350 Contrast volume:100 mL Oral: No FINDINGS: ABDOMEN: Lung Bases: Normal where visualized. Liver: Normal density. No measurable mass. Portal, Superior Mesenteric, and Splenic Veins: Unremarkable. Gallbladder and Biliary Tract: No radiodense calculus or dilation. Pancreas: Normal density, no abnormal calcifications or inflammatory process. Spleen: Normal. Adrenals: Stable left adrenal nodule. Right adrenal gland unremarkable. Kidneys: Normal size, contour and axis. No radiodense stones or obstructive uropathy. Small simple cy st in the left kidney. Abdominal Aorta: Abdominal portion non-dilated. Mild atherosclerosis. Bowel: There is bowel wall thickening seen in the distal transverse colon and proximal descending col on. The findings are most suggestive of an nonspecific inflammatory or infectious colitis. No free air or abscess. No evidence of bowel obstruction. Appendix is unremarkable. Colonic diverticulosis. No evidence of acute diverticulitis. Peritoneal Cavity: No ascites, collection or mesenteric inflammatory response. Findings of a prior ri ght inguinal repair. Lymph Nodes: Within normal limits. Bones: Several old lumbar compression fractures are seen. There again seen posterior spinal rods and pedicle screws extending from C2 L2 through L4. Degenerative changes are seen in the spine. No new compression deformities are present. Soft Tissues: Unremarkable. PELVIS: Bladder: Symmetric distention, no gross wall thickening. Reproductive Organs: Mildly enlarged prostate gland. Lymph Nodes: Within normal limits. Bones: Please see above. IMPRESSION: 1. Bowel wall thickening and pericolonic inflammatory changes predominantly involving the distal lo sverse colon and proximal descending colon. The findings likely reflect a infectious or inflammatory colitis. There is diverticular disease in the descending and sigmoid colon. 2. No abscess or free air. 3. Findings were discussed with the emergency department on the date of the examination. RADIATION DOSE DELIVERED: 1,007.3mGy.cm Total DLP DATA REPOSITORY: All CT scans at this facility are submitted to the National Radiology Data Registry (NRDR) Dose Index Registry (DIR) with the [employer] ([employer]). RADIATION OPTIMIZATION: All CT scans at this facility use at least one of these dose optimization te chniques: automated exposure control; mA and/or kV adjustment per patient size (includes targeted exa ms where dose is matched to clinical indication); or iterative reconstruction.
[2020-09-11] MEDS: Normal Saline - Diluent 50 ML VIAL IV (09:34)
[2020-09-11] MEDS: Omnipaque 350 MG/ML 100 ML BTL IJ (09:35)
[2020-09-11 10:09] LABS: Bilirubin Negative (Negative); Blood Negative (Negative); Clarity Clear (Clear); Glucose Negative (Negative); Ketones Negative (Negative); Leukocyte Esterase Negative (Negative); Nitrite Negative (Negative); Urobilinogen 0.2 EU/dL (Up TO 0.2)
[2020-09-11] MEDS: Ciprofloxacin 500 MG TAB PO (10:36)
[2020-09-11] MEDS: metroNIDAZOLE 500 MG TAB PO (10:36)
[2020-09-11] MEDS: Ketorolac 30 MG/ML VIAL IVP (10:37)
[2020-09-11 10:51] VITALS: BP 126/73; PULSE 52; RESP 18; TEMP 36.6; O2SAT 95
[2020-09-11 11:30] VITALS: BP 153/95; PULSE 58; RESP 17; TEMP 36.6; O2SAT 97
== END 2020-09-11 11:46 | disposition home or self-care (01) ==
PROVIDERS: Emergency Provider Physician Assistant; PCP Family Medicine
DX: R11.2 Nausea with vomiting, unspecified (principal); R10.32 Left lower quadrant pain; K52.9 Noninfective gastroenteritis and colitis, unspecified
CPT/HCPCS: 36415; 80048; 80076; 83690; 85027; 96361; 96374; 96375; 99285; 74177; 81003; J1885; J2405; J3490

== ENCOUNTER 2020-11-09 13:14 | Emergency (ER) | payer MEDICARE, MEDICAID, SELFPAY ==
[2020-11-09 13:30] VITALS: BP 150/91; PULSE 84; RESP 16; TEMP 36.6; O2SAT 98
[2020-11-09 13:44] LABS: Bilirubin Negative (Negative); Blood Negative (Negative); Clarity Clear (Clear); Glucose Negative (Negative); Ketones Negative (Negative); Leukocyte Esterase Negative (Negative); Nitrite Negative (Negative); Urobilinogen 0.2 EU/dL (Up TO 0.2); pH 6.5 (5-8)
--- NOTE | 2020-11-09 14:16 | ED.GENADUL_ITS ---
Discharge Plan Disposition Patient Disposition: HOME Condition: Stable Discharge Details Clinical Impression: Chronic pain, Myalgia Primary Care Provider: Joon Cool ED Provider: Alberta Fontenot Home Meds and New Rx's Prescriptions: Continued omeprazole 40 mg capsule,delayed release(DR/EC) 40 mg PO DAILY Qty: 90 RF: 3 prochlorperazine maleate [Compazine] 10 mg tablet 10 mg PO TID PRN (Reason: nausea and vomiting) Qty: 7 RF: 0 Discharge Instructions Instructions: Chronic Pain (ED), Musculoskeletal Pain (ED) Additional Instructions: Drink plenty of fluids and get plenty of rest. Alternate tylenol and motrin as needed and directed for pain. Call your primary care doctor today to schedule a follow up appointment for re- evaluation and for pending results of your blood tests drawn today. Return to the emergency department with any worsening or new concerning symptoms. Discharge Data Discharge Date/Time-TO BE ENTERED AT DEPARTURE: 11/09/20 15:22 Discharge Physician: Alberta Fontenot Medical Decision Making 65-year-old male with a history of chronic pain and depression presents for chronic diffuse muscle cramps of the past year. He appears comfortable and nontoxic. During my examination, he is complaining of pain under both ribs, his back, his right thigh which have come and gone while in the ED. Discussed with patient at length that the differential diagnosis of myalgias can be extensive, and considering that he has been afebrile, with a normal appetite and no report of weight loss, this is reassuring. Screening labs were obtained and unremarkable. Discussed with patient that we also obtained a tick and Lyme panel and a rheumatoid factor. He feels comfortable going home. He is advised to follow-up with his primary care doctor for reevaluation and for pending results of his lab test drawn today. He is advised that he might need further consultation with a import customs clearing agent or pain management physician. Usual and customary return precautions given prior to discharge. Medical Records Medical records reviewed: Yes I reviewed the patient's medical records. Lab Data Lab results reviewed: Yes I reviewed the patient's lab results. Labs: Laboratory Tests Range/Units 11/09/20 11/09/20 11/09/20 13:40 14:34 14:34 WBC (4.4-10.8) 10^3/uL 11.81 H RBC (4.36-5.78) 10^6/uL 5.47 Hgb (13.5-17.5) g/dL 15.7 Hct (40.0-50.0) % 48.6 MCV (80-95) fL 88.8 MCH (27.0-33.0) pg 28.7 MCHC (32.0-36.0) % 32.3 RDW (11.8-14.1) % 12.7 Plt Count (130-400) 10^3/uL 279 MPV (8.0-11.0) fL 11.5 H Immature Gran % 0.3 Neutrophils % 81.4 Lymphocytes % 10.7 Monocytes % 6.3 Eosinophils % 0.5 Basophils % 0.8 Nucleated RBC % % 0 Absolute Neutrophils (1.2-6.7) 10^3/uL 9.61 H Absolute Lymphocytes (1.2-3.4) 10^3/uL 1.26 Absolute Monocytes (0.1-0.8) 10^3/uL 0.74 Absolute Eosinophils (0.0-0.7) 10^3/uL 0.06 Absolute Basophils (0.0-0.2) 10^3/uL 0.09 Sodium (136-145) mmol/L 136 Potassium (3.5-5.1) mmol/L 4.4 Chloride (98-107) mmol/L 102 Carbon Dioxide (21.0-32.0) mmol/L 27.2 Anion Gap (3-11) mmol/L 6.8 BUN (7-18) mg/dL 13 Creatinine (0.70-1.30) mg/dL 1.13 Estimated GFR/1.73 m2 (mL/min/1.73m2) >= 60.00 Glucose (74-106) mg/dL 120 H Calcium (8.5-10.1) mg/dL 9.1 Total Bilirubin (0.2-1.0) mg/dL 0.5 AST (15-37) U/L 30 ALT (16-63) U/L 42 Alkaline Phosphatase (46-116) U/L 72 Total Protein (6.4-8.2) g/dL 8.4 H Albumin (3.4-5.0) g/dL 4.7 Urine Color (Yellow) Yellow Urine Clarity (Clear) Clear Urine pH (5-8) 6.5 Ur Specific [place] (1.005-1.025) 1.020 Urine Protein (Negative) mg/dL Negative Urine Ketones (Negative) mg/dL Negative Urine Blood (Negative) Negative Urine Nitrite (Negative) Negative Urine Bilirubin (Negative) Negative Urine Urobilinogen (Up TO 0.2) EU/dL 0.2 Ur Leukocyte Esterase (Negative) Negative Urine Glucose (Negative) mg/dL Negative Rheumatoid Factor (<12.0) IU/mL Range/Units 11/09/20 14:34 WBC (4.4-10.8) 10^3/uL RBC (4.36-5.78) 10^6/uL Hgb (13.5-17.5) g/dL Hct (40.0-50.0) % MCV (80-95) fL MCH (27.0-33.0) pg MCHC (32.0-36.0) % RDW (11.8-14.1) % Plt Count (130-400) 10^3/uL MPV (8.0-11.0) fL Immature Gran % Neutrophils % Lymphocytes % Monocytes % Eosinophils % Basophils % Nucleated RBC % % Absolute Neutrophils (1.2-6.7) 10^3/uL Absolute Lymphocytes (1.2-3.4) 10^3/uL Absolute Monocytes (0.1-0.8) 10^3/uL Absolute Eosinophils (0.0-0.7) 10^3/uL Absolute Basophils (0.0-0.2) 10^3/uL Sodium (136-145) mmol/L Potassium (3.5-5.1) mmol/L Chloride (98-107) mmol/L Carbon Dioxide (21.0-32.0) mmol/L Anion Gap (3-11) mmol/L BUN (7-18) mg/dL Creatinine (0.70-1.30) mg/dL Estimated GFR/1.73 m2 (mL/min/1.73m2) Glucose (74-106) mg/dL Calcium (8.5-10.1) mg/dL Total Bilirubin (0.2-1.0) mg/dL AST (15-37) U/L ALT (16-63) U/L Alkaline Phosphatase (46-116) U/L Total Protein (6.4-8.2) g/dL Albumin (3.4-5.0) g/dL Urine Color (Yellow) Urine Clarity (Clear) Urine pH (5-8) Ur Specific [place] (1.005-1.025) Urine Protein (Negative) mg/dL Urine Ketones (Negative) mg/dL Urine Blood (Negative) Urine Nitrite (Negative) Urine Bilirubin (Negative) Urine Urobilinogen (Up TO 0.2) EU/dL Ur Leukocyte Esterase (Negative) Urine Glucose (Negative) mg/dL Rheumatoid Factor (<12.0) IU/mL <8.6 HPI General Mode of arrival: ambulatory . Date/Time Provider Initiated Documentation: 11/09/20 13:24 . Limitations to Documentation: no limitations . Information obtained by: patient . HPI Narrative: Patient is a 65-year-old male with a history of chronic pain, GERD, lumbar fusion presents with complaint of diffuse muscle cramps for the past year. Patient states the sites of the muscle cramps alternates between under both ribs, arms, back, legs. He states he has not seen his primary care doctor for this as he stated it would take too long to get an appointment. He states he became frustrated with his symptoms today and decided to come to the ER. He denies any new change or worsening of the symptoms. He states today he ate breakfast and vomited 1 but has been able to eat and swallow since then. He denies any fever, weight loss, chest pain, shortness of breath, abdominal pain, diarrhea. He states he has not taken any medication for his symptoms. He denies any known injury. Related Data Home Medications Medication Instructions Recorded Confirmed omeprazole 40 mg capsule,delayed 40 mg PO DAILY #90 cap 06/02/20 09/11/20 release prochlorperazine maleate 10 mg PO TID PRN #7 tab 09/11/20 [Compazine] Previous Rx's Medication Instructions Recorded omeprazole 40 mg capsule,delayed 40 mg PO DAILY #90 cap 06/02/20 release prochlorperazine maleate 10 mg PO TID PRN #7 tab 09/11/20 [Compazine] Allergies Allergy/AdvReac Type Severity Reaction Status Date / Time No Known Allergies Allergy Unverified 09/11/20 07:57 General Stated Complaint: [facility] VALENTÍN: 3 Review of Systems All systems reviewed & are unremarkable except as noted in HPI and below Constitutional Constitutional: Reports as per HPI, Reports body ache(s), Denies chills and Denies fever(s) Eyes Eyes: Denies blurry vision ENT Ears, Nose, Mouth, and Throat: Denies dizziness, Denies sore throat and Denies throat swelling Cardiovascular Cardiovascular: Denies chest pain and Denies dyspnea Respiratory Respiratory: Denies cough and Denies dyspnea Gastrointestinal Gastrointestinal: Denies abdominal pain, Denies diarrhea and Denies vomiting Genitourinary Genitourinary: Denies hematuria and Denies dysuria Musculoskeletal Musculoskeletal: Denies back pain and Denies numbness Integumentary/Breasts Skin/Breast: Denies lesions and Denies rash Neurologic Neurologic: Denies dizziness, Denies localized weakness and Denies numbness Allergic/Immunologic Allergic/Immunologic: Denies throat swelling [facility] Medical History (Updated 11/09/20 @ 15:06 by Alberta Fontenot DO) Chronic low back pain Depressive disorder Smoker Surgical History Colonoscopy - MAC (~2006) Colonoscopy - MAC (02/07/17) CT/SPINE (~2003) LAMINECTOMY L2,L3,L4 03/02/18 L4-L5 @ [facility] Meniscectomy RIGHT X 3 LEFT x 2 MRI/SPINE (~2006) NASAL POLYP REMOVAL Repair of inguinal hernia RIGHT Spinal Fusion (~03/1997) L2,L3,L4 Family History Sister No problems noted. Sister No problems noted. Sister No problems noted. Maternal Grandfather No problems noted. Paternal Grandfather No problems noted. Maternal Grandmother No problems noted. Sister No problems noted. Paternal Grandmother Diabetes Son No problems noted. Son No problems noted. Mother , 97 Alcohol abuse Father , 74 No problems noted. Social History Smoking/Tobacco Use Status: Former Tobacco Use Tobacco: How many years used: 25 Quit status: considering quitting (vapes) Smoking risk assessment performed?: Yes Alcohol Intake: current Alcohol Intake frequency: a few times a week Alcohol type: beer Drug use: Occasionally Substance use type: marijuana Caregiver/Support person: No Household members: spouse Housing: house Communication Needs: None Do you need help understanding health information?: Never Pets and animals: Yes Pets and animals: cat(s) and dog(s) Sexually active: Yes Do you think of yourself as: straight/heterosexual Current gender identity: male What is your relationship status?: How often do you talk on the phone with friends or family?: once per week How often do you get together with friends or relatives?: once per week How often do you attend catholic or zoroastrianism services?: 1-3 times per year Do you belong to any clubs or organized social groups?: yes Panel score (0-1 are the most socially isolated patients): 2 What type of physical activity do you participate in: walking Duration: 15-30 minutes/day Frequency: 5-6 times per week Sylvia/Jainism: Gnosticist Special sylvia needs: No Seatbelt use: always Helmet use: Yes Helmet use: always Drive intox or ride w/intox jinriksha driver: No Do you feel safe at home: Yes Do you feel safe in your relationship?: Yes Exam Const General: cooperative, healthy appearing and no acute distress HENRI Head: normal to inspection Ears: hearing grossly normal bilaterally and external ears normal General nose exam: external nose normal Face and sinus: normal facial exam Mouth: oral mucosae normal, tongue normal, moist mucous membranes, no drooling and no trismus Throat: posterior oropharynx normal Eyes General: appearance normal, both eyes and all related structures Pupils: PERRL EOM: EOM intact bilaterally Neck Neck: normal visual inspection, no meningeal signs, trachea midline, supple and No submandibular swelling Lymphatic: no lymphadenopathy noted Chest Chest: normal inspection of the chest and no tenderness Resp Effort & Inspection: normal respiratory effort and able to speak in complete sentences Auscultation: clear to auscultation bilaterally Cardio Rate: regular rate Rhythm: regular rhythm GI Inspection: normal to inspection Palpation: soft, not firm, not rigid and nontender Auscultation: normal bowel sounds Back/Spine/Pelvis Thoracic/Lumbar Spine: thoracic and lumbar spine normal to inspection Skin General skin exam: no rashes or lesions noted Neuro General: patient alert, patient awake, patient oriented x3, gait normal, moves all extremities, no meningeal signs and no focal motor deficits Cognition: normal cognition Speech: speech normal Motor: muscle tone normal throughout and strength 5/5 throughout Sensory Exam: no sensory deficits noted Extrem General: normal to inspection, full ROM, capillary refill normal, no calf tenderness bilaterally and no edema Psych Appearance: grossly normal Mental Status: mental status grossly normal Speech and Movement: speech and movement normal Affect: normal affect Course Vital Signs Vital signs: Vital Signs Temperature 97.9 F 11/09/20 13:30 Pulse 84 11/09/20 13:30 Respiratory Rate 16 11/09/20 13:30 Blood Pressure 150/91 H 11/09/20 13:30 Pulse Oximetry 98 11/09/20 13:30 Temperature 97.9 F 11/09/20 13:30 Temperature Source Tympanic 11/09/20 13:30 Pulse 84 11/09/20 13:30 Respiratory Rate 16 11/09/20 13:30 Blood Pressure 150/91 H 11/09/20 13:30 Pulse Oximetry 98 11/09/20 13:30 Oxygen Delivery Method Room Air 11/09/20 13:30 Oxygen Flow Rate 0 11/09/20 13:30 Pain Level 3 11/09/20 13:30 Lab/Test Results Lab/Test Results: Laboratory Tests Range/Units 11/09/20 13:40 Urine Color (Yellow) Yellow Urine Clarity (Clear) Clear Urine pH (5-8) 6.5 Ur Specific [place] (1.005-1.025) 1.020 Urine Protein (Negative) mg/dL Negative Urine Ketones (Negative) mg/dL Negative Urine Blood (Negative) Negative Urine Nitrite (Negative) Negative Urine Bilirubin (Negative) Negative Urine Urobilinogen (Up TO 0.2) EU/dL 0.2 Ur Leukocyte Esterase (Negative) Negative Urine Glucose (Negative) mg/dL Negative
[2020-11-09 14:36] VITALS: RESP 16
[2020-11-09 14:51] LABS: Abs Immature Grans 0.04 10^3/uL (0.0-0.06); Absolute Basophil Count 0.09 10^3/uL (0.0-0.2); Absolute Eosinophil Count 0.06 10^3/uL (0.0-0.7); Absolute Lymphocyte Count 1.26 10^3/uL (1.2-3.4); Absolute Monocyte Count 0.74 10^3/uL (0.1-0.8); Basophils % 0.8; Eosinophils % 0.5; HCT 48.6 % (40.0-50.0); HGB 15.7 g/dL (13.5-17.5); Immature Grans % 0.3; Lymphocytes % 10.7; MCH 28.7 pg (27.0-33.0); MCHC 32.3 % (32.0-36.0); MCV 88.8 fL (80-95); MPV 11.5 fL (8.0-11.0); Monocytes % 6.3; Neutrophils % 81.4; Nucleated RBC 0 %; Platelet Count 279 10^3/uL (130-400); RBC 5.47 10^6/uL (4.36-5.78); RDW 12.7 % (11.8-14.1); RDW-SD 41.6 fL; WBC 11.81 10^3/uL (4.4-10.8)
[2020-11-09 14:52] LABS: Absolute Neutrophil Count 9.61 10^3/uL (1.2-6.7)
[2020-11-09 14:56] LABS: ALT 42 U/L (16-63); AST 30 U/L (15-37); Albumin 4.7 g/dL (3.4-5.0); Alkaline Phosphatase 72 U/L (46-116); Anion Gap 6.8 mmol/L (3-11); BUN 13 mg/dL (7-18); Bilirubin, Total 0.5 mg/dL (0.2-1.0); CO2 27.2 mmol/L (21.0-32.0); CREATININE 1.13 mg/dL (0.70-1.30); Calcium 9.1 mg/dL (8.5-10.1); Chloride 102 mmol/L (98-107); Glucose 120 mg/dL (74-106); Potassium 4.4 mmol/L (3.5-5.1); Sodium 136 mmol/L (136-145); Total Protein 8.4 g/dL (6.4-8.2)
[2020-11-09 21:02] LABS: Rheumatoid Factor <8.6 IU/mL (<12.0)
[2020-11-10 10:07] LABS: Lyme Ab w Rflx to Lyme Confirm Negative (Negative)
[2020-11-11 20:13] LABS: Anaplasma phagocytophilum Negative (Negative); B. miyamotoi PCR Negative (Negative); Babesia divergens/MO-1 Negative (Negative); Babesia duncani Negative (Negative); Babesia microti Negative (Negative); Ehrlichia chaffeensis Negative (Negative); Ehrlichia ewingii/canis Negative (Negative); Ehrlichia muris eauclairensis Negative (Negative)
== END 2020-11-09 15:22 | disposition home or self-care (01) ==
PROVIDERS: Emergency Provider Physician Assistant; PCP Family Medicine
DX: M79.10 Myalgia, unspecified site (principal); G89.29 Other chronic pain
CPT/HCPCS: 36415; 80053; 87798; 99283; 81003; 85025; 86431; 86618

== ENCOUNTER 2020-12-28 10:58 | Emergency (ER) | payer MEDICARE, MEDICAID, SELFPAY ==
[2020-12-28] VITALS (32 sets, daily range): BP systolic 143–173; BP diastolic 84–106; PULSE 54–68; RESP 11–20; TEMP 36.2; O2SAT 93–98
--- NOTE | 2020-12-28 11:00 | RT.EKG_ITS ---
APPROVED REPORT Exam: Resting ECG Patient Location: E HR:62 bpm ECG Measurements Heart Rate 62 AXIS NE 166 P 75 QRSd 106 QRS 23 QT 405 T 21 QTc 412 Conclusion Sinus rhythm...normal P axis, V-rate 60- 99 Consider anteroseptal infarct...Q >30mS, dimin R, V1-V2 non-diagnostic EKG I have reviewed and interpreted ECG and agree with software generated interpretation.
[2020-12-28] MEDS: Aspirin 81 MG CHEW 324 MG CH (11:35)
[2020-12-28 11:50] LABS: Abs Immature Grans 0.03 10^3/uL (0.0-0.06); Absolute Basophil Count 0.11 10^3/uL (0.0-0.2); Absolute Eosinophil Count 0.11 10^3/uL (0.0-0.7); Absolute Lymphocyte Count 1.01 10^3/uL (1.2-3.4); Absolute Monocyte Count 0.53 10^3/uL (0.1-0.8); Absolute Neutrophil Count 5.59 10^3/uL (1.2-6.7); Basophils % 1.5; Eosinophils % 1.5; HCT 44.9 % (40.0-50.0); HGB 14.5 g/dL (13.5-17.5); Immature Grans % 0.4; Lymphocytes % 13.7; MCH 28.9 pg (27.0-33.0); MCHC 32.3 % (32.0-36.0); MCV 89.4 fL (80-95); MPV 11.4 fL (8.0-11.0); Monocytes % 7.2; Neutrophils % 75.7; Nucleated RBC 0 %; Platelet Count 251 10^3/uL (130-400); RBC 5.02 10^6/uL (4.36-5.78); RDW 12.9 % (11.8-14.1); RDW-SD 42.5 fL; WBC 7.38 10^3/uL (4.4-10.8)
--- NOTE | 2020-12-28 11:56 | DI.RAD_ITS ---
EXAM: XR CHEST 2V PA LATERAL CLINICAL HISTORY: chest pain. TECHNIQUE: 2D digital imaging was performed. COMPARISON: CR XR CHEST 2V PA LATERAL from 10/18/2018 FINDINGS: Heart size is normal. The mediastinum is not widened. Lungs are clear. No infiltrates nor pleural effusions. Fusion hardware noted in the lumbar spine. Also compression fracture of what is probably T11 or T12, 1 level above the hardware. IMPRESSION: No acute pulmonary findings.Spinal findings as above. Correlation with site of tenderness john west DATA REPOSITORY: RADIATION DOSE DELIVERED:
[2020-12-28 11:57] LABS: Lipase 82 U/L (73-393)
[2020-12-28 12:01] LABS: INR 1.1 (0.9-1.1); PTT Activated 27.2 sec (21.0-27.5); Prothrombin Time 10.6 sec (9.3-11.0)
--- NOTE | 2020-12-28 12:07 | ED.GENADUL_ITS ---
Discharge Plan Disposition Patient Disposition: HOME Condition: Stable Discharge Details Clinical Impression: Chest pain, Back pain Primary Care Provider: Joon Cool ED Provider: Mynor Gould Home Meds and New Rx's Prescriptions: Continued acetaminophen [Acetaminophen Extra Strength] 500 mg Tablet 1,000 mg PO BID RF: 0 Discharge Instructions Instructions: Chest Pain (ED), Back Pain (ED) Additional Instructions: Work-up in the ER does not reveal any obvious emergent process and your symptoms have resolved. Observation admission was offered but declined. Please watch for new or worsening symptoms and return to the ER for any concerns. Your CTA imaging reveals mild prominence of the diameter of your a sending and descending aorta. No aortic dissection. Outpatient ultrasound will be needed to monitor this. Lastly, I do recommend reaching out your primary care provider later today or tomorrow to discuss outpatient evaluation. You may need further testing for your symptoms such as stress test and/or echocardiogram. Medical Decision Making This is a 65-year-old gentleman with a past medical history of chronic low back pain, depression, hypertension, presenting to the ER for back pain that caused his entire chest to feel tight and had difficulty taking a deep breath. Did have pain in his left shoulder-arm but that has resolved completely. He states that he prefers not to take any medication however his doctor has recommended that he does take something for his blood pressure in the past. Clinically he appears well, nontoxic, reports his pain was a 3 out of 10 at its worst, now is a 1.5 out of 10. Patient and I discussed realistic work-up and goals. He does not have interest in being admitted to our facility and would like his end result to be discharged home. Will obtain IV access, initiate cardiac work-up including a D-dimer, CTA of his aorta, and give 4 baby aspirin. Work-up initiated, patient reports that his pain is now a 0.5 out of 10. Laboratory values are unremarkable for obvious emergent process. Troponin less than 0.05, normal renal function, D-dimer 238, INR 1.1, normal white count and H&H. Chest x-ray negative Discussed initial work-up with patient. He is relieved. He tells me now that his pain is 0 out of 10, he is asymptomatic. CTA is pending. He is agreeable to awaiting a repeat troponin and EKG. We discussed his CTA, no emergent process, but will need outpatient monitoring of his aorta diameter. Repeat EKG performed at 1417. Please see official report by Dr. Montero. Sinus bradycardia, ventricular rate of 65. No STEMI. No dynamic changes when compared to initial EKG Repeat EKG remains less than 0.05 Discussed repeat EKG and troponin. Patient remains asymptomatic. Blood pressure trending down slightly. Patient understands that he should likely be on hypertensive medications if he remains hypertensive but he will have this conversation with his primary care provider. He also understands that an observation admission was offered but declined. We discussed the need for outpatient monitoring of his aorta, likely outpatient echocardiogram and stress test given his presentation today. He was encouraged to return to the ER for new or worsening symptoms; otherwise, he will reach out to his primary care provider later today or tomorrow to discuss prompt outpatient reevaluation. Medical Records Medical records reviewed: Yes I reviewed the patient's medical records. Imaging Data Radiologic Study: Attestation: I personally reviewed and interpreted this imaging study as follows: Imaging: X-Ray Radiologist's impression: Chest x-ray read by radiology as no acute pulmonary findings. Old compression fracture of T11-12 Radiologic Study #2: Attestation: I personally reviewed and interpreted this imaging study as follows: Imaging: CT Scan Radiologist's impression: CTA of thorax and abdomen read by radiology as mild prominence of the diameter of the ascending thoracic aorta. No evidence of aortic dissection. Mild prominence of the descending thoracic aorta. Unremarkable appearing abdominal aorta and aortic bifurcation. No acute pulmonary findings. Heart size normal. No pericardial effusion. No significant findings in the abdomen with the exception of of an element of hepatic steatosis. ECG Data Attestation: I personally reviewed and interpreted this ECG (s) as follows: Interpretation: Please see official report by Dr. Montero. Sinus rhythm, ventricular rate of 62, no STEMI. HPI General Mode of arrival: ambulatory . Date/Time Provider Initiated Documentation: 12/28/20 11:30 . Limitations to Documentation: no limitations . Information obtained by: patient . HPI Narrative: This is a 65-year-old gentleman with past medical history that includes chronic low back pain, d epression, hypertension, presenting to the ER from the urgent care. Patient states that he went to bed last night asymptomatic and awoke today asymptomatic. At around 7:00 this morning he was in the garage, felt what he describes as a piercing knuckle being jabbed between my shoulder blades. He reports that that pain then wrapped around both sides of his chest into the front. He states that the worse the pain caused him to feel like his entire chest was being squeezed, and he felt as though it was difficult to take a deep breath. He states that at one time he noticed a small amount of discomfort up into his left shoulder and down his arm to his elbow but did not go any further. Patient had initially reported shortness of breath but upon further investigation he feels as though he is to simply cannot take a deep breath. He denies recent illness or trauma. Denies headache, neck pain, cough, abdominal pain, nausea, vomiting, change in bowel or bladder function, pain or swelling in his lower extremities. Patient states that the symptoms in his left shoulder-arm only lasted for a very short period of time. After his symptoms began around 7:00 he states he went to run errands and was sitting upright in his truck for an hour or so and felt as though the posture did not help his symptoms. He tells me now his discomfort is only in his back and is a 1.5 out of 10. He has not taken any medication for his symptoms. Related Data Home Medications Medication Instructions Recorded Confirmed acetaminophen [Acetaminophen Extra 1,000 mg PO BID 12/28/20 12/28/20 Strength] Allergies Allergy/AdvReac Type Severity Reaction Status Date / Time No Known Allergies Allergy Verified 12/28/20 11:12 General Stated Complaint: Chest Pain VALENTÍN: 2 Review of Systems Constitutional Constitutional: Denies fatigue, Denies fever(s), Denies headache(s) and Denies weakness ENT Ears, Nose, Mouth, and Throat: Denies headache(s) and Denies neck pain Cardiovascular Cardiovascular: Reports chest pain and Reports dyspnea Respiratory Respiratory: Denies cough and Reports dyspnea Gastrointestinal Gastrointestinal: Denies abdominal pain, Denies nausea and Denies vomiting Musculoskeletal Musculoskeletal: Reports back pain (Chronic), Denies neck pain, Denies numbness and Denies tingling Integumentary/Breasts Skin/Breast: Denies rash Neurologic Neurologic: Denies headache(s), Denies numbness, Denies tingling and Denies weakness Endocrine Endocrine: Denies fatigue Hematologic/Lymphatic Hematologic/Lymphatic: Denies easy bleeding and Denies easy bruising [facility] Medical History Chronic low back pain Depressive disorder Phlegm in throat Smoker Surgical History Colonoscopy - MAC (~2006) Colonoscopy - MAC (02/07/17) CT/SPINE (~2003) LAMINECTOMY L2,L3,L4 03/02/18 L4-L5 @ [facility] [place] Meniscectomy RIGHT X 3 LEFT x 2 MRI/SPINE (~2006) NASAL POLYP REMOVAL Repair of inguinal hernia RIGHT Spinal Fusion (~03/1997) L2,L3,L4 Family History Sister No problems noted. Sister No problems noted. Sister No problems noted. Maternal Grandfather No problems noted. Paternal Grandfather No problems noted. Maternal Grandmother No problems noted. Sister No problems noted. Paternal Grandmother Diabetes Son No problems noted. Son No problems noted. Mother , 97 Alcohol abuse Father , 74 No problems noted. Social History Smoking/Tobacco Use Status: Former Tobacco Use Tobacco: How many years used: 25 Quit status: considering quitting (vapes) Smoking risk assessment performed?: Yes Alcohol Intake: current Alcohol Intake frequency: a few times a week Alcohol type: beer Drug use: Occasionally Substance use type: marijuana Caregiver/Support person: No Household members: spouse Housing: house Communication Needs: None Do you need help understanding health information?: Never Pets and animals: Yes Pets and animals: cat(s) and dog(s) Sexually active: Yes Do you think of yourself as: straight/heterosexual Current gender identity: male What is your relationship status?: How often do you talk on the phone with friends or family?: once per week How often do you get together with friends or relatives?: once per week How often do you attend pentecostal or lutheran services?: 1-3 times per year Do you belong to any clubs or organized social groups?: yes Panel score (0-1 are the most socially isolated patients): 2 What type of physical activity do you participate in: walking Duration: 15-30 minutes/day Frequency: 5-6 times per week Sylvia/Worship: Orthodox Special sylvia needs: No Seatbelt use: always Helmet use: Yes Helmet use: always Drive intox or ride w/intox short haul driver: No Do you feel safe at home: Yes Do you feel safe in your relationship?: Yes Exam Const General: cooperative, healthy appearing, comfortable and no acute distress Orientation: alert and awake [facility] Head: normal to inspection, normocephalic and atraumatic Mouth: moist mucous membranes Eyes General: appearance normal, both eyes and all related structures Conjunctivae: conjunctivae normal Sclera: sclerae normal Neck Neck: normal visual inspection, full ROM, trachea midline, supple and nontender Chest Chest: normal inspection of the chest and normal palpation of entire chest wall Resp Effort & Inspection: normal respiratory effort and able to speak in complete sentences Auscultation: clear to auscultation bilaterally Cardio Rate: regular rate Rhythm: regular rhythm GI Inspection: normal to inspection Palpation: soft, not firm, no guarding, no pulsatile masses and nontender Auscultation: normal bowel sounds Back/Spine/Pelvis Back: No back tenderness Skin General skin exam: no rashes or lesions noted Neuro General: patient alert, patient awake, moves all extremities and no focal motor deficits Cognition: normal cognition Speech: speech normal Gait: normal gait Motor: muscle tone normal throughout Sensory Exam: no sensory deficits noted Extrem General: normal to inspection, full ROM, capillary refill normal, no pedal edema and no calf tenderness Psych Appearance: grossly normal Mental Status: mental status grossly normal Course Vital Signs Vital signs: Vital Signs Temperature 36.2 C L 12/28/20 11:06 Pulse 64 12/28/20 11:06 Respiratory Rate 18 12/28/20 11:06 Blood Pressure 173/106 H 12/28/20 11:06 Pulse Oximetry 98 12/28/20 11:06 Temperature 36.2 C L 12/28/20 11:06 Temperature Source Temporal Artery Scan 12/28/20 11:06 Pulse 62 12/28/20 11:46 Pulse 64 12/28/20 11:40 Respiratory Rate 20 12/28/20 11:40 Respiratory Effort 12/28/20 11:21 Respiratory Depth Normal 12/28/20 11:19 Respiratory Pattern Normal 12/28/20 11:19 Blood Pressure 145/92 H 12/28/20 11:46 Blood Pressure Mean 105 12/28/20 11:46 Blood Pressure Position Sitting 12/28/20 11:06 Pulse Oximetry 95 12/28/20 11:40 Oxygen Delivery Method Room Air 12/28/20 11:06 Oxygen Flow Rate 0 12/28/20 11:06 Pain Level 2 12/28/20 11:19 Lab/Test Results Lab/Test Results: Laboratory Tests Range/Units 12/28/20 12/28/20 12/28/20 11:28 11:28 11:28 WBC (4.4-10.8) 10^3/uL 7.38 RBC (4.36-5.78) 10^6/uL 5.02 Hgb (13.5-17.5) g/dL 14.5 Hct (40.0-50.0) % 44.9 MCV (80-95) fL 89.4 MCH (27.0-33.0) pg 28.9 MCHC (32.0-36.0) % 32.3 RDW (11.8-14.1) % 12.9 Plt Count (130-400) 10^3/uL 251 MPV (8.0-11.0) fL 11.4 H Immature Gran % 0.4 Neutrophils % 75.7 Lymphocytes % 13.7 Monocytes % 7.2 Eosinophils % 1.5 Basophils % 1.5 Nucleated RBC % % 0 Absolute Neutrophils (1.2-6.7) 10^3/uL 5.59 Absolute Lymphocytes (1.2-3.4) 10^3/uL 1.01 L Absolute Monocytes (0.1-0.8) 10^3/uL 0.53 Absolute Eosinophils (0.0-0.7) 10^3/uL 0.11 Absolute Basophils (0.0-0.2) 10^3/uL 0.11 PT (9.3-11.0) sec 10.6 INR (0.9-1.1) 1.1 APTT (21.0-27.5) sec 27.2 Lipase (73-393) U/L 82
[2020-12-28 12:08] LABS: NT-proBNP 71 pg/mL (<300)
[2020-12-28 12:10] LABS: ALT 35 U/L (16-63); AST 18 U/L (15-37); Albumin 4.2 g/dL (3.4-5.0); Alkaline Phosphatase 84 U/L (46-116); Anion Gap 6.8 mmol/L (3-11); BUN 11 mg/dL (7-18); Bilirubin, Total 0.3 mg/dL (0.2-1.0); CO2 28.2 mmol/L (21.0-32.0); CREATININE 0.9 mg/dL (0.70-1.30); Calcium 9.1 mg/dL (8.5-10.1); Chloride 106 mmol/L (98-107); Glucose 128 mg/dL (74-106); Magnesium 2.5 mg/dL (1.8-2.4); Potassium 4.4 mmol/L (3.5-5.1); Sodium 141 mmol/L (136-145); Total Protein 7.6 g/dL (6.4-8.2)
[2020-12-28 12:16] LABS: Troponin I < 0.05 ng/mL (<0.06)
[2020-12-28 12:17] LABS: D-Dimer 238 ng/mlFEU (<500)
--- NOTE | 2020-12-28 12:30 | DI.CT_ITS ---
EXAM: CT THORAX ABDOMEN CTA CLINICAL HISTORY: chest pain shoots to back, hypertension. TECHNIQUE: Imaging Protocol: Axial computed tomography images with coronal and sagittal reformatted images were created and reviewed CONTRAST MATERIAL: Intravenous: Omnipaque 350 Contrast volume:100 ml Oral: None COMPARISON: CT CT ABDOMEN PELVIS W from 09/11/2020 FINDINGS: CHEST: LUNGS: There are emphysematous COPD changes which are most prominent in the upper lobes. There are n o confluent infiltrates, ominous pulmonary nodules, nor pleural effusions.. There are no significant focal findings in the trachea and mainstem bronchi. MEDIASTINUM: There is no hilar nor mediastinal adenopathy. Visualized thyroid unremarkable. CARDIAC: Heart size is normal. There is no pericardial effusion. AORTA: Caliber of the thoracic aorta is upper normal-minimally prominent..Diameter of the ascending t horacic aorta is 3.8 cm. Diameter of the mid aortic arch is 2.8 cm. Diameter of the proximal descen ding thoracic aorta is 3 centimetres, slightly prominent. Diameter of the lower thoracic descending thoracic aorta is 2.7 centimetres. There is no prominent atherosclerotic plaque in the thoracic aort a. There is no evidence of abdominal aortic aneurysm nor dissection. Maximum diameter of the abdominal aorta is 2.4 cm. No significant atherosclerotic disease at the origin of the celiac and superior mes enteric arteries nor the origin of the renal arteries. Inferior mesenteric artery is also patent. T here is no significant atherosclerotic disease/narrowing at the aortic bifurcation nor in the visuali zed aspects of the common iliac arteries. There is no aneurysmal dilatation of the common iliac shahbaz mehul. ABDOMEN: There is no ascites. LIVER: There are no focal hepatic lesions nor dilatation of intrahepatic ducts. Mild steatosis. GALLBLADDER/BILIARY: No obvious gallbladder pathology. CBD is not dilated. PANCREAS: No evidence of pancreatic mass nor dilatation of the pancreatic duct. SPLEEN: Spleen is not enlarged. There are no intrasplenic lesions. Splenic and portal veins are gamble nt. ADRENALS: There are no significant adrenal masses. KIDNEYS: No cysts evident. No calculi nor hydronephrosis. No solid renal masses. ABDOMINAL AORTA: See above discussion LYMPH NODES: There is no retroperitoneal nor para-aortic adenopathy. No obvious mesenteric masses. ABDOMINAL WALL/GI: No evidence of significant anterior abdominal wall hernia. No bowel obstruction. OSSEOUS: There is multilevel fusion surgery in the lumbar spine. No lytic osseous lesions identified. IMPRESSION: 1. Mild prominence of the diameter of the ascending thoracic aorta. No evidence of aortic dissection . Mild prominence of the descending thoracic aorta. Unremarkable appearing abdominal aorta and aort ic bifurcation. 2. No acute pulmonary findings. No intrathoracic adenopathy nor pleural effusions. 3. Heart size is normal. There is no pericardial effusion. 4. No significant findings in the abdomen with the exception of an element of hepatic steatosis. 5. Fusion surgery in the lumbar spine noted. 6. The pelvis was not scanned.. RADIATION DOSE DELIVERED: 739.23mGy.cm Total DLP DATA REPOSITORY: All CT scans at this facility are submitted to the National Radiology Data Registry (NRDR) Dose Index Registry (DIR) with the [employer] (ACR). RADIATION OPTIMIZATION: All CT scans at this facility use at least one of these dose optimization te chniques: automated exposure control; mA and/or kV adjustment per patient size (includes targeted exa ms where dose is matched to clinical indication); or iterative reconstruction.
[2020-12-28] MEDS: Omnipaque 350 MG/ML 100 ML BTL IV (13:16)
[2020-12-28] MEDS: Normal Saline - Diluent 50 ML VIAL IV (13:17)
--- NOTE | 2020-12-28 14:15 | RT.EKG_ITS ---
APPROVED REPORT Exam: Resting ECG Patient Location: E HR:55 bpm ECG Measurements Heart Rate 55 AXIS MN 167 P 76 QRSd 109 QRS 30 QT 448 T 14 QTc 430 Conclusion Sinus bradycardia...rate< 60 Anteroseptal infarct, old...Q >40mS, V1-V2 non-diagnostic EKG I have reviewed and interpreted ECG and agree with software generated interpretation.
[2020-12-28 14:52] LABS: Troponin I < 0.05 ng/mL (<0.06)
== END 2020-12-28 15:08 | disposition home or self-care (01) ==
PROVIDERS: Emergency Provider Physician Assistant; PCP Family Medicine
DX: R07.89 Other chest pain (principal); M54.9 Dorsalgia, unspecified; R06.89 Other abnormalities of breathing; I10 Essential (primary) hypertension
CPT/HCPCS: 71275; 74175; 80053; 83690; 93005; 99285; 71046; 83735; 83880; 84484; 85025; 85379; 85610; 85730; 93010; 99284; J3490

== ENCOUNTER 2021-01-18 00:34 | Outpatient (CLI) | payer MEDICARE, MEDICAID, SELFPAY ==
--- NOTE | 2021-01-18 06:45 | DI.NM_ITS ---
APPROVED REPORT Exam: Exercise Treadmill Patient Location: Out-Patient Room/Bed: Ordering Provider:TYLOR LANGE, Contact Number: BMI: 27.89 Baseline Rhythm: Sinus Bradycardia Indications: Chest pain. Medical History Medical History: Depression, Chronic back pain, Aortic aneurysm. Cardiac Medications: None., Allergies: No known drug allergies Cardiac Risk Factors: Smoking (former) Previous Cardiac Procedures: None. Pretest Chest Pain Characteristics: None Exercise History: Sedentary Physical Disabilities: None. Lung Sounds: Clear to auscultation Heart Sounds: Regular Stress Test Details Test: Exercise stress testing was performed using a Wesley protocol. Nuclear Acquisition: Rest Tc-99m/Stress Tc-99m 1 day Rest Isotope: Tc-99m Sestamibi. Dose: 11.0 Date: 01/18/2021 Injection Time: 0905 Stress Isotope: Tc-99m Sestamibi. Dose: 31.5 Date: 01/18/2021 Injection Time: 1040 HR Resting HR Supine: 57 bpm Max Heart Rate (APMHR): 156 bpm Resting HR Standin bpm Target HR (85% APMHR): 132 bpm Max HR Achieved: 152 bpm % of APMHR: 97 Recovery HR: 81 bpm HR response to stress: Normal HR response to stress BP Resting BP Supine: 118/90 mmHg Resting BP Standin/94 mmHg Max BP: 188/84 mmHg Recovery BP: 140/90 mmHg BP response to stress: Normal blood pressure response to stress. ECG Resting ECG: Sinus Bradycardia Ectopy: None. Stress ECG: Sinus Tachycardia ST Change: No significant ST segment changes noted Arrhythmia: None Recovery ECG: Sinus Rhythm Recovery ST Change: No significant ST segment changes noted Recovery Arrhythmia: rare PVC. Clinical Reason for Termination: Fatigue Stress Symptoms: General Fatigue Exercise duration: 10 min59 sec Highest Stage Reached: Stage 4: 4.2 mph at 16% grade. Exercise capacity: 13.44 METs Ballesteros Treadmill Score: 10.4 Rate Pressure Product: 94230 Stress ECG Conclusion 1. Electrocardiogram was normal 2. The patient exercised on the Wesley protocol and completed a workload of 13.44 METS, limited by fat igue 3. Normal heart rate and blood pressure response to exercise. The patient achieved 97% of predicted heart rate for age 4. Electrocardiographically there was no evidence of myocardial ischemiar 5. Rare PVCs were seen Ball[place]os Treadmill Score is 10.4 which is Low risk. Stress Test Summary STAGE Time (mins) Speed (mph) Grade (%) HR BP SYMPTOMS METS Supine 57 118/90 Standing 61 126/94 1 3 1.7 10 91 150/96 4.6 2 6 2.5 12 109 174/90 7 3 9 3.4 14 126 10.2 1 min recovery 126 188/84 3 min recovery 92 170/88 6 min recovery 81 140/90 MPI Conclusion Normal myocardial perfusion without evidence of ischemia or prior infarction EF with exercise is 62% Radiologist Interpretation Radiologist agrees with Tube Cutter Operator's Interpretation. Radiologist Interpretation by: Yan Thomas MD Interpretation Date/Time: 01/19/2021 14:20:48
== END 2021-01-18 00:54 ==
PROVIDERS: PCP Family Medicine; Visit Provider Family Medicine
DX: R07.9 Chest pain, unspecified (principal); Z87.891 Personal history of nicotine dependence
CPT/HCPCS: 78452; 93016; 93018; 93017

== ENCOUNTER 2022-09-14 10:09 | Outpatient (REF) | payer MEDICARE, MEDICAID, SELFPAY ==
[2022-09-14 20:47] LABS: ALT 103 U/L (16-63); AST 31 U/L (15-37); Albumin 4.1 g/dL (3.4-5.0); Alkaline Phosphatase 96 U/L (46-116); Anion Gap 4.9 mmol/L (3-11); BUN 14 mg/dL (7-18); Bilirubin, Total 0.3 mg/dL (0.2-1.0); CO2 29.1 mmol/L (21.0-32.0); CREATININE 1.1 mg/dL (0.70-1.30); Calcium 9.5 mg/dL (8.5-10.1); Chloride 104 mmol/L (98-107); Estimated GFR 74.04 (mL/min/1.73m2); Glucose 106 mg/dL (74-106); Potassium 4.8 mmol/L (3.5-5.1); Sodium 138 mmol/L (136-145); Total Protein 7.7 g/dL (6.4-8.2)
== END 2022-09-14 10:10 | disposition home or self-care (01) ==
LOC: LBN 10:09
PROVIDERS: PCP Family Medicine; Visit Provider Nurse Practitioner Family
DX: R03.0 Elevated blood-pressure reading, without diagnosis of hypertension (principal); M54.59 Other low back pain; G89.29 Other chronic pain
CPT/HCPCS: 80053

== ENCOUNTER → 2022-10-05 02:21 | Outpatient (CLI) | payer MEDICARE, MEDICAID, SELFPAY ==
--- NOTE | 2022-10-05 07:30 | DI.MRI_ITS ---
Exam(s) MR LUMBAR SPINE WO/W EXAM: MR LUMBAR SPINE WO/W CLINICAL HISTORY: Worsening back pain with radiculopathy,m54.5,h/o. TECHNIQUE: Multiplanar multisequence MRI of the Lumbar spine was performed. COMPARISON: MR MRI - LUMBAR SPINE WO CONTRAST from 12/27/[address] THORAX ABDOMEN CTA from 12/28/2020 FINDINGS: Multi level fusion hardware in the lumbar spine at L2, L3, and L4 levels again noted with posterior f usion bars and bilateral intrapedicular screws at these 3 levels. The relationship of the screws rel ative to the superior endplates is satisfactory. No evidence of osteomyelitis nor obvious discitis. There is some loss of height of the superior endplate of L1 again noted but this is not new and is n ot associated with bone edema. No evidence of new paraspinal fluid collection. There is also surgic al absence of posterior osseous elements at L5 level although there is no hardware at this level. No canal stenosis at this level evident. Conus medullaris is at normal level (T12-L1)l. There is no evidence of conus mass nor subjacent clump ing of intrathecal nerve roots to suggest arachnoiditis. The distal thecal sac appears unremarkable. There is no evidence of Tarlov intrasacral cysts nor other significant findings within the sacral can al Bones:There are no acute fractures nor ominous osseous lesions in the lumbar vertebral bodies and vis ualized sacrum. There is fusion of the vertebral bodies of L2 and L3. With respect to the individual levels... T11-T12: Unremarkable. T12-L1: Compression fracture (nonacute) and Schmorl's node invagination superior endplate of L1. post eriorly there is no evidence of disc herniation or central canal stenosis at this level and no forami nal stenosis. At the next 3 levels (L1-2, L2-3, and L3-4 levels) there is abundant artifact from the bilateral for fusion bars and bilateral intrapedicular screws making visualization difficult. However, there are n o very obvious abnormal findings at these levels. L4-5: This is 1 level below the fusion. Relatively preserved disc height. There is mild annular bul ging but no prominent disc herniation at this level. Central canal dimensions appear lower normal. There is mild bilateral foraminal stenosis at this level but this may be exaggerated by the artifact from the lower most intrapedicular screws at L4 level. L5-S1: This level also exhibits absence of posterior osseous elements despite the fusion bars not ext ending down to this level. The central canal dimensions are within normal limits. There is no promi nent facet arthropathy at this level. However, there is significant bilateral vertical foraminal dina nosis at this level with the exiting nerve roots being impinged between the overlying L5 pedicles and the subjacent annular bulging. This is slightly more prominent on the left than the right side but is significant bilaterally. There is no listhesis at this level. The findings at this level were al so evident on the prior study of December 2017. Soft tissues: No evidence of obvious paraspinal nor epidural abscess, realized limitations of this s tudy. Psoas muscles appear symmetrical. IMPRESSION: 1. Compared to the prior MRI scan December 2017 there is again noted multilevel fusion with posterior fusion bars and bilateral intrapedicular screws at L2, L3, and L4 levels and these levels appear rel atively unchanged from the prior 2018 MRI study but are again difficult to assess because of the larg e amount of artifact from the hardware at these levels. 2. I note that posterior osseous elements of also been removed at L5-S1 level despite no metallic camilo dware at this level. At this level there is no evidence of central spinal canal stenosis but there i s bilateral vertical foraminal stenosis related to the disc height loss and there is impingement of t he exiting nerve roots bilaterally at this level within the exiting neural foramina bilaterally, thes e being impinged between the subjacent bulging annulus and the L5 pedicles. Correlation with neurolo gic findings recommended. 3. Levels above the fusion appear stable and unremarkable with no central canal stenosis nor foramina l stenosis at T12-L1 nor at L1-L2 levels. 4. There is no obvious abnormal fluid collection (paraspinal nor epidural), rising limitations of th e study due to the abundant artifact. DATA REPOSITORY:
[2022-10-05] MEDS: Normal Saline Flush 10 ML SYR IVP (12:21)
[2022-10-05] MEDS: Gadoterate meglumine 20 ML VIAL 19 ML IVP (12:22)
== END ==
PROVIDERS: PCP Family Medicine; Visit Provider Nurse Practitioner Family
DX: G89.29 Other chronic pain; Z98.1 Arthrodesis status; M48.55XD Collapsed vertebra, not elsewhere classified, thoracolumbar region, subsequent encounter for fracture with routine healing; M51.17 Intervertebral disc disorders with radiculopathy, lumbosacral region
CPT/HCPCS: 72158; 82565

== ENCOUNTER 2023-07-07 08:44 | Day surgery (SDC) | payer MEDICARE, MEDICAID, SELFPAY ==
--- NOTE | 2023-07-07 08:48 | HPE_ITS ---
Assessment and Plan Assessment and plan (1) Nuclear age-related cataract, left eye: Status: Acute Assessment and plan: Assessment: Visually significant cataract of the left eye. Plan: Cataract extraction with lens implantation of the left eye. (2) Cortical age-related cataract, left eye: Status: Acute Assessment and plan: Assessment: Visually significant cataract of the left eye. Plan: Cataract extraction with lens implantation of the left eye. (3) Posterior subcapsular age-related cataract of left eye: Status: Acute Assessment and plan: Assessment: Visually significant cataract of the left eye. Plan: Cataract extraction with lens implantation of the left eye. History of Present Illness History of Present Illness Chief Complaint: Progressive decreased vision, both eyes Narrative: The patient is a 67-year-old male who has previously undergone myopic LASIK many years ago. He notes progressive decreased vision, particularly in his left eye over the past 12 months, both distance and near. He notes significant glare when driving at night and also notes a cloud in his vision. On examination he was noted to have bilateral nuclear and posterior subcapsular cataract, left eye worse than right. The option of cataract surgery was offered to the patient and he wished to proceed. Review of Systems All systems reviewed & are unremarkable except as noted in HPI and below PFSH All Active Problems Lumbar disc herniation with radiculopathy (Acute) Chronic pain syndrome (Acute 08/30/17) Pancolonic diverticulosis (Acute 02/07/17) Lumbar stenosis (Acute) Left lumbar radiculopathy (Acute) L1 vertebral fracture (Acute 08/24/17) Insomnia (Acute) Diverticulitis (Acute 12/02/17) Depressive disorder (Acute) Chronic low back pain (Acute) S/P BURST FRACTURE Lesion of skin of face (Chronic) Hepatitis B (Acute) Encounter for annual physical exam (Acute) Right cervical radiculopathy (Acute) short course of steroids orally PT referral Phlegm in throat (Acute) Elevated blood protein (Acute) Muscle cramps (Acute) Aortic aneurysm (Chronic) Deviated nasal septum (Acute) Nasal polyps (Acute) GERD (gastroesophageal reflux disease) (Chronic) Elevated blood pressure reading without diagnosis of hypertension (Acute) Lumbosacral radiculopathy at L5 (Acute) Lumbar spondylosis (Acute) Nuclear age-related cataract, left eye (Acute) Cortical age-related cataract, left eye (Acute) Posterior subcapsular age-related cataract of left eye (Acute) Medical History Chronic low back pain Depressive disorder Smoker Surgical History (Updated 07/07/23 @ 09:16 by Krystle Singleton RN) Colonoscopy - MAC (~2006) Colonoscopy - MAC (02/07/17) CT/SPINE (~2003) H/O Spinal surgery L2-S1 laminectomy with wedge placement, [facility] [place] LAMINECTOMY L2,L3,L4 03/02/18 L4-L5 @ [facility] [place] Meniscectomy RIGHT X 3 LEFT x 2 MRI/SPINE (~2006) NASAL POLYP REMOVAL Repair of inguinal hernia RIGHT Spinal Fusion (~03/1997) L2,L3,L4, l5 and s1 Family History Sister No problems noted. Sister No problems noted. Sister No problems noted. Maternal Grandfather No problems noted. Paternal Grandfather No problems noted. Maternal Grandmother No problems noted. Sister No problems noted. Paternal Grandmother Diabetes Son No problems noted. Son No problems noted. Mother , 97 Alcohol abuse Father , 74 No problems noted. Social History Smoking/Tobacco Use Status: Former Tobacco Use Quit Date: 11/06/17 Tobacco: How many years used: 25 Quit status: considering quitting (vapes) Smoking risk assessment performed?: Yes Alcohol Intake: current Alcohol Intake frequency: a few times a week Alcohol type: beer Drug use: Occasionally Substance use type: marijuana Details: last marijuana use this am, 07/07/23 Caregiver/Support person: No Household members: spouse Housing: house Communication Needs: None Do you need help understanding health information?: Never Pets and animals: Yes Pets and animals: cat(s) and dog(s) Sexually active: Yes Do you think of yourself as: straight/heterosexual Current gender identity: male What is your relationship status?: How often do you talk on the phone with friends or family?: once per week How often do you get together with friends or relatives?: once per week How often do you attend restorationist or pentecostalism services?: 1-3 times per year Do you belong to any clubs or organized social groups?: yes Panel score (0-1 are the most socially isolated patients): 2 What type of physical activity do you participate in: walking Duration: 15-30 minutes/day Frequency: 5-6 times per week Sylvia/Mormonism: Sabianism Special sylvia needs: No Seatbelt use: always Helmet use: Yes Helmet use: always Drive intox or ride w/intox explosives truck driver: No Do you feel safe at home: Yes Do you feel safe in your relationship?: Yes Meds Allergies and Home Medications Allergies Allergy/AdvReac Type Severity Reaction Status Date / Time No Known Allergies Allergy Verified 07/07/23 09:16 Home Medications Medication Instructions Recorded Confirmed Type acetaminophen 500 mg capsule 1,000 mg PO Q6H PRN 03/28/23 07/07/23 History Exam Eyes Other: Most recent ocular examination revealed uncorrected visual acuity of 20/30 in each eye. Extraocular toady is normal. Intraocular pressures 13 OD, 14 OS. Slit-lamp examination is significant for 1-2+ nuclear trace posterior subcapsular cataract and cortical spoking in the right eye. 2+ nuclear with 1- 2+ posterior subcapsular cataract centrally and dense posterior cortical spoking. Pupils dilate only to 4.5 mm. Funduscopic examination reveals disc cupping of 0.3 OU with normal vessels, macula, peripheral retina and vitreous. Both eyes have moderate floaters in the vitreous cavity. Resp Auscultation: clear to auscultation bilaterally Cardio Rate: regular rate Rhythm: regular rhythm
[2023-07-07 09:18] VITALS: BP 135/94; PULSE 67; RESP 16; TEMP 36.5; O2SAT 95
[2023-07-07] MEDS: Tropicam./Phenyleph. (1/2.5%) 5 ML BTL OS ×3 (09:29→09:40)
--- NOTE | 2023-07-07 09:33 | W.ANESPRE ---
General Info Date of Service Date Performed: 07/07/23 Height: 5 ft 11 in Weight: 92.4 kg Body Mass Index (BMI): 28.4 Surgical Procedure: Operation Date: 07/07/23 10:40 Proposed Procedure Side Surgeon p Cataract Extraction with IOL Implant Left Chidi Brooke MD Meds Allergies and Home Medications Allergies Allergy/AdvReac Type Severity Reaction Status Date / Time No Known Allergies Allergy Verified 07/07/23 09:16 Home Medication Medication Instructions Recorded acetaminophen 500 mg capsule 1,000 mg PO Q6H PRN 03/28/23 Current Visit Medications: Current Medications Generic Name Dose Route Start Last Admin Trade Name Freq PRN Reason Stop Dose Admin Acetaminophen 1,000 mg 07/07/23 06:00 Acetaminophen 500 Mg Tab PO 08/06/23 05:59 Q4H PRN PRN Balanced Salt Solution 500 ml 07/07/23 06:00 Balanced Salt Soln.-Plus 500 Ml Bag OP 08/06/23 05:59 DIRECTED CARLOS Miscellaneous Medication 0 ml 07/07/23 06:00 Prednisolone 1%, Moxifloxacin 0.5%, Nepafenac 0.1% 5ml Btl OS 08/06/23 05:59 DIRECTED CARLOS Miscellaneous Medication 0 ml 07/07/23 06:00 07/07/23 09:29 Tropicam./Phenyleph. (1/2.5%) 5 Ml Btl OS 08/06/23 05:59 1 drp DIRECTED CARLOS Administration Tetracaine HCl 0 ml 07/07/23 06:00 Tetracaine 0.5% 4 Ml Btl OS 08/06/23 05:59 DIRECTED CARLOS PFSH Active Problems Active Problems: Problem Status Onset Code Lumbar disc herniation with radiculopathy M51.16 Chronic pain syndrome 08/30/17 G89.4 Pancolonic diverticulosis 02/07/17 K57.30 Lumbar stenosis M48.061 Left lumbar radiculopathy M54.16 L1 vertebral fracture 08/24/17 S32.019A Insomnia G47.00 Diverticulitis 12/02/17 K57.92 Depressive disorder F32.9 Chronic low back pain M54.5, G89.29 Lesion of skin of face L98.9 Hepatitis B B19.10 Encounter for annual physical exam Z00.00 Right cervical radiculopathy M54.12 Phlegm in throat R09.89 Elevated blood protein E88.09 Muscle cramps R25.2 Aortic aneurysm I71.9 Deviated nasal septum J34.2 Nasal polyps J33.9 GERD (gastroesophageal reflux disease) K21.9 Elevated blood pressure reading without diagnosis of hypertension R03.0 Lumbosacral radiculopathy at L5 M54.17 Lumbar spondylosis M47.816 Nuclear age-related cataract, left eye H25.12 Cortical age-related cataract, left eye H25.012 Posterior subcapsular age-related cataract of left eye H25.042 Medical History Medical History Chronic low back pain Depressive disorder Smoker Surgical History Surgical History (Updated 07/07/23 @ 09:16 by Krystle Singleton RN) Colonoscopy - MAC (~2006) Colonoscopy - MAC (02/07/17) CT/SPINE (~2003) H/O Spinal surgery L2-S1 laminectomy with wedge placement, [facility] [place] 04/2023 LAMINECTOMY L2,L3,L4 03/02/18 L4-L5 @ [facility] [place] Meniscectomy RIGHT X 3 LEFT x 2 MRI/SPINE (~2006) NASAL POLYP REMOVAL Repair of inguinal hernia RIGHT Spinal Fusion (~03/1997) L2,L3,L4, l5 and s1 Tobacco Smoking/Tobacco Use Status: Former Tobacco Use Passive smoking exposure: Yes Alcohol Alcohol Intake: current Alcohol intake frequency: a few times a week Alcohol type: beer Substance Use Substance use: Occasionally Substance use type: marijuana Details: last marijuana use this am, 07/07/23 Vital Signs and Lab Results Vital Signs Most Recent Vital Signs in EMR: Most Recent Vital Signs Temp Pulse Resp BP Pulse Ox 36.5 C 67 16 135/94 H 95 07/07/23 09:18 07/07/23 09:18 07/07/23 09:18 07/07/23 09:18 07/07/23 09:18 Lab Results Blood Type / Crossmatch: No Data to Display Complete Blood Count: No Data to Display Complete Metabolic Panel: No Data to Display Liver Function Panel: No Data to Display Coagulation Panel: No Data to Display Cardiac Panel: No Data to Display Arterial Blood Gas: No Data to Display Venous Blood Gas: No Data to Display Pancreas Panel: No Data to Display Thyroid Panel: No Data to Display Infectious Disease: No Data to Display Blood Cultures: No Data to Display Toxicology Panel: No Data to Display Anesthesia Assessment and Plan Anesthesia History Personal History: No History of Anesthesia Complications Family History: No Family History of Anesthesia Complications Exercise Tolerance Exercise Tolerance: Metabolic Equivalents>4 Pertinent Negatives Pertinent Negatives: No Symptoms of GERD Cardiac & Pulmonary Exam Cardiac Exam: Normal S1/S2 Heart Sounds Pulmonary Exam: Clear Bilateral Breath Sounds Implantable Cardiac Device Does patient have a Pacemaker or an ICD?: No Airway Exam Known Difficult Airway: No Mallampati Class: 2 Mouth Opening: Normal (> 3cm) Thyromental Distance: Greater than 3 cm Neck Range of Motion: Full ROM Neck Circumference: Normal Teeth Condition: Normal Dentition ASA Classification ASA Score: ASA 2 Emergency Case?: No NPO Status NPO Status: NPO Clears >2 hours, Solids >8 hours Anesthesia Plan Resuscitation Status: Full Code Anesthesia Technique: MAC Anesthesia Airway Planned: Natural Airway Monitors Used: Standard Monitors
[2023-07-07 09:34] VITALS: BMI 28.4
[2023-07-07] MEDS: Balanced Salt Soln.-PLUS 500 ML BAG OP (10:24)
[2023-07-07] MEDS: Tetracaine 0.5% 4 ML BTL OS (10:25)
[2023-07-07] MEDS: Lidocaine 1% Pres-Free 5 ML VIAL (10:26)
[2023-07-07] MEDS: Duovisc Viscoelastic System EACH 1 EACH (10:26)
[2023-07-07] MEDS: Povidone-Iodine Ophth 30 ML BTL (10:28)
[2023-07-07] MEDS: Phenylephrine/Lidocaine (15/10) MG/ML 1 ML VIAL (10:28)
[2023-07-07 10:47] VITALS: BP 134/99; PULSE 64; RESP 16; TEMP 36.6; O2SAT 95
--- NOTE | 2023-07-07 10:48 | W.PM.DSUDISC ---
Date of service: 07/07/23 Time of Service: 10:48 Discharge Plan Disposition Patient Disposition: Home Discharge Details Attending Provider: Chidi Brooke Primary Care Provider: Joon Cool Home Meds and New Rx's Prescriptions: No Action acetaminophen 500 mg capsule 1,000 mg PO Q6H PRN Discharge Instructions Stand Alone Forms: Post-op Topical Cataract, Micaela Todd (DSU) Discharge Orders Discharge Orders: Discharge Order (Routine); Ordered 07/07/23 Ordered By: Chidi Brooke DS: Diagnosis Discharge Diagnosis (1) Nuclear age-related cataract, left eye: Status: Resolved (2) Cortical age-related cataract, left eye: Status: Resolved (3) Posterior subcapsular age-related cataract of left eye: Status: Resolved
--- NOTE | 2023-07-07 10:49 | W.PM.OP ---
Date of service: 07/07/23 Time of Service: 10:49 Operative Note Operative Note DATE OF PROCEDURE: 07/07/23 PRE-OP DIAGNOSIS: Nuclear/cortical/posterior subcapsular cataract, left eye POST-OP DIAGNOSIS: same PROCEDURE: Cataract extraction using phacoemulsification with intraocular lens implant, left eye SURGEON: Chidi Brooke ANESTHESIA TYPE: Local By Surgeon and MAC Refer to Anesthesia Record PATHOLOGY: none sent COMPLICATIONS: None Patient was transported to: same day Patient's condition: stable Implants: Richard and Richard Tecnis Eyhance [id number] Indications: Progressive decreased vision due to cataract, left eye Procedure Description: CATARACT SURGERY OPERATIVE REPORT PREOPERATIVE DIAGNOSIS: 1. Nuclear/cortical/posterior subcapsular cataract, left eye POSTOPERATIVE DIAGNOSIS: Same OPERATION: 1. Cataract extraction using phacoemulsification with posterior chamber intraocular lens implant, left eye. IOL: IOL Assessment Consultant/Model: Richard & Richard Tecnis Eyhance [id number] IOL Power: + 19.5 diopters IOL Serial Number: [id number] Optic Diameter: 6.0 mm Haptic/Overall Diameter: 13.0 mm PHACO INFO: Jimy Pawziiurion Vision System with OZil and Active Fluidics Cumulative Dispersed Energy (CDE): 13.58 seconds SURGEON: Chidi Brooke MD, MARCELO ANESTHESIA: Monitored A [facility] (MAC), with local sub-tenon's anesthetic infiltration COMPLICATIONS: None SPECIMENS: None INDICATIONS FOR PROCEDURE: The patient is a 68-year-old male with history of diminished visual acuity in his left eye secondary to the development of nuclear/cortical/posterior subcapsular cataract. He is significantly symptomatic that he desires cataract surgery and attempt to improve and maximize his vision. He has previously undergone myopic LASIK vision correction. See office notes for detailed information. PROCEDURE: The correct surgical eye was identified and marked as the left eye and the pupil was dilated in the preoperative area using mydriatics and cycloplegics. The dilated pupil size was 6.5 mm. Oral sedation was administered in the form of an Imprimis MKO Melt (midazolam 3mg/ketamine 25mg/ondansetron 2mg). The patient elected to proceed without oral sedation. The patient was brought to the operating room where cardiopulmonary monitoring was instituted and surgical time-out was performed, confirming the correct operative eye and IOL power. Topical anesthesia was administered and ophthalmic povidone-iodine 5% was instilled into the conjunctival fornices. The latosha-ocular area was prepped with Betadine 10% solution and draped in the usual sterile fashion for intraocular surgery, including an aperture drape. A Tegaderm transparent film dressing was cut in half and used to cover the lashes and lid margins. Care was taken to sequester the lashes and lid margins under the Tegaderm dressing. A lid speculum was placed between the lids of the operative eye and the Jimy LuxOR Revalia operating microscope was maneuvered into position. Kulwinder scissors were then used to make a conjunctival buttonhole approximately 6mm posterior to the limbus in the inferonasal quadrant. Blunt dissection was carried out to expose bare sclera, and a blunt-tipped sub-tenon?s anesthesia cannula was introduced and passed posteriorly along the globe where non-preserved plain lidocaine was injected into posterior sub-Tenon?s space. A sideport knife was used to make a paracentesis port. VisionBlue was injected into the anterior chamber and allowed to sit for 20 seconds. Intraocular phenylephrine/lidocaine was injected into the anterior chamber.. The anterior chamber was filled with viscoelastic. A keratome knife was used to construct a 2-plane near-clear corneal tunnel extending 2.0mm into clear cornea. A flap was raised on the anterior capsule and capsulorhexis forceps were used to complete a continuous curvilinear capsulorhexis of 5.5 mm. Balanced salt solution was then used to perform cortical cleaving hydrodissection and nuclear hydrodelineation until the lens could be freely rotated within the capsular bag. The lens nucleus was then disassembled and removed within the capsular bag and iris plane using phacoemulsification. Residual cortical material was removed using the irrigation/aspiration handpiece. The posterior capsule was carefully polished to remove as much residual lens epithelial cells as safely possible. The capsular bag was then inflated and the anterior chamber deepened with viscoelastic. The lens implant described above was inserted into the capsular bag using the Richard and Richard Simplicity pre-loaded injector. A Kuglen hook was used to dial the IOL into position. Residual viscoelastic was then removed first from posterior to the IOL, then from the anterior chamber using the I/A handpiece. The lens implant was noted to center nicely within the capsular bag. The incisions were stromally hydrated, and the anterior chamber was reformed using BSS. Then 0.5cc of moxifloxacin 1.0mg/ml were injected into the capsular bag and anterior chamber. The incisions were checked with a Weck spear and found to be secure. Several drops of ophthalmic povidone-iodine 5% were then applied to the eye followed by two drops of Imprimis combination prednisolone/moxifloxacin/nepafenac solution. The drapes were removed and a clear plastic protective eye shield was placed over the eye. The patient was then returned to Same Day Surgery in stable condition.
--- NOTE | 2023-07-07 11:00 | W.ANESPOSTOP ---
Postoperative Evaluation Date, Time and Location Date Performed: 07/07/23 Time Performed: 11:00 Patient Location: Day Surgery Unit Vital Signs Most Recent Imported Vital Signs: Most Recent Vital Signs Temp Pulse Resp BP Pulse Ox 36.5 C 67 16 135/94 H 95 07/07/23 09:18 07/07/23 09:18 07/07/23 09:18 07/07/23 09:18 07/07/23 09:18 Pain Score Most Recent Pain Score: Most Recent Pain Score Pain Level 0 07/07/23 09:18 Assessment Mental Status: Awake (Alert & Oriented to Patient Baseline) Airway and Respiratory Function: Patent airway with normal (patient baseline) respiratory exam Cardiovascular Function: Hemodynamically Stable Hydration Status: Adequately Hydrated Nausea & Vomiting: No Nausea or Vomiting Pain: Pt. Denies Any Pain Peripheral Nerve Block: Patient did not receive a nerve block
== END 2023-07-07 11:08 | disposition home or self-care (01) ==
LOC: SUR 08:44
PROVIDERS: PCP Family Medicine; Visit Provider Ophthalmology
PROC: (CPT 66984; principal; 2023-07-07 10:30)
DX: H25.12 Age-related nuclear cataract, left eye (principal); H25.012 Cortical age-related cataract, left eye; H25.042 Posterior subcapsular polar age-related cataract, left eye
CPT/HCPCS: 66984; V2632

== ENCOUNTER → 2024-05-07 02:05 | Outpatient (CLI) | payer MEDICARE, MEDICAID, SELFPAY ==
--- NOTE | 2024-05-07 12:40 | DI.RAD_ITS ---
Exam(s) XR KNEE LT 3V AP,LAT,CHARITY EXAM: XR KNEE LT 3V AP,LAT,CHARITY CLINICAL HISTORY: chronic left knee pain,m25.562. TECHNIQUE: 2D digital imaging was performed. COMPARISON: No exams were available for comparison FINDINGS: 3 views No evidence of fracture but there is a joint effusion signifying internal derangement. There are advanced degenerative changes in the medial compartment with [id number] narrowing medial compartment and marginal osteophytes. Also degenerative subarticular cysts. Lateral compartment exh ibits normal height. Some degenerative changes also evident in the patellofemoral compartment. Bone density normal. 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 Moderate degenerative changes in the patell ofemoral compartment. Joint effusion noted. DATA REPOSITORY: RADIATION DOSE DELIVERED:
== END ==
PROVIDERS: PCP Family Medicine; Visit Provider Family Medicine
DX: M25.562 Pain in left knee (principal); M25.40 Effusion, unspecified joint
CPT/HCPCS: 73562

== ENCOUNTER 2024-08-25 11:45 | Emergency (ER) | payer MEDICARE, MEDICAID, SELFPAY ==
[2024-08-25] VITALS (8 sets, daily range): BP systolic 150–161; BP diastolic 84–127; PULSE 59–73; RESP 16–18; TEMP 36.3–36.4; O2SAT 94–98
--- NOTE | 2024-08-25 11:54 | ED.GENADUL_ITS ---
Discharge Plan Disposition Patient Disposition: Home Condition: Stable Discharge Details Clinical Impression: Pneumonia Primary Care Provider: Joon Cool ED Provider: Trever Andrews Home Meds and New Rx's Prescriptions: New amoxicillin-pot clavulanate 875-125 mg tablet 1 tab PO BID 5 Days Qty: 10 0RF azithromycin 250 mg tablet See Rx Instructions .ROUTE .COMPLEX Qty: 6 0RF Rx Instructions: For 250 mg dose pack: take 500 mg today (day 1), then 250 mg for 4 days (days 2-5) No Action acetaminophen 500 mg capsule 1,000 mg PO Q6H PRN Discharge Instructions Instructions: Azithromycin (Systemic), Amoxicillin and Clavulanate, Community- Acquired Pneumonia, Adult (DC) Additional Instructions: You were seen in the emergency department for your likely right lower lobe pneumonia. I have sent to 2 different antibiotics to your pharmacy for 5 days each, they should take care of almost every bacterial cause of pneumonia. Please use therapeutic dosing of Tylenol (acetamenophen) & Advil (ibuprofen) in an alternating fashion as follows: Take 1000mg of Tylenol every 6 hours without missing doses- that is 4 times per day. [place]cox in between the Tylenol dosings, take 400-600mg of Advil also on a 6 hour schedule, that is also 4 times per day. The daily maximum dosing of Tylenol is 4000mg, and the daily maximum dosing of Advil is 2400mg. This is safe to do for weeks. Please note that some common cold medications & prescription pain medications may contain acetamenophen and you need to read OTC drug labels and factor that in to maximum daily dosings. Please return to the emergency department for worsening shortness of breath, severe increase in fevers, body aches, profound lethargy, inability to tolerate p.o. intake or any other emergent concerns Referrals: Joon Cool MD [Primary Care Provider] - Discharge Data Discharge Date/Time-TO BE ENTERED AT DEPARTURE: 08/25/24 14:09 HPI General Date/Time Provider Initiated Documentation: 08/25/24 11:54 . HPI Narrative: 69 year-old male presents to ED today by POV/ambulating with a chief complaint of return of cough/cold symptoms after getting over a cold 3+ weeks ago, now having worsening productive sputum, mild SOB. Quality described as productive cough of green phlegm, mild SOB, feels clammy, no radiation to high fever, respiratory distress, nausea/vomiting, chest pain, profound lethargy. Severity is described as moderate. Palliating factors include taking OTC cold meds without relief. Provoking factors include nothing specific. Events leading up to the incident/Associated Symptoms: Patient is vaccinated for Covid. Patient not anticoagulated. Related Data Home Medications ?Medication ?Instructions ?Recorded ?Confirmed acetaminophen 500 mg capsule 1,000 mg PO Q6H PRN 03/28/23 08/25/24 amoxicillin 875 mg-potassium 1 tab PO BID 5 days #10 tabs 08/25/24 clavulanate 125 mg tablet azithromycin 250 mg tablet See Rx Instructions PO .COMPLEX #6 08/25/24 tabs Previous Rx's ?Medication ?Instructions ?Recorded amoxicillin 875 mg-potassium 1 tab PO BID 5 days #10 tabs 08/25/24 clavulanate 125 mg tablet azithromycin 250 mg tablet See Rx Instructions PO .COMPLEX #6 08/25/24 tabs Allergies Allergy/AdvReac Type Severity Reaction Status Date / Time No Known Allergies Allergy Verified 08/25/24 11:51 General Stated Complaint: RespSymp VALENTÍN: 3 Review of Systems All systems reviewed & are unremarkable except as noted in HPI and below Exam Narrative Exam Narrative: GENERAL APPEARANCE: Well-nourished, non-toxic, awake and alert, atraumatic, no acute distress. SKIN: Warm, pink, dry, intact, without rashes/lesions/ulcerations. HEAD: Normocephalic, atraumatic, normal hair distribution for gender/age. EYES: Normal conjunctiva, no exudates on lids/lashes. ENT: Nares patent, no circumoral cyanosis, no facial swelling NECK: Supple, trachea midline, painless cervical ROM. LUNGS/CHEST: Lungs- rhonchi R base, non-labored respirations, normal A/P diameter, symmetrical expansion, no chest wall deformity HEART (CV/PV): Regular rate and rhythm without murmur, no peripheral edema, no JVD. ABDOMEN: Soft, non-distended, no guarding. MSK: Normal ROM, no swelling/deformity to bilateral UEs or LEs, moving all extremities without weakness, no cyanosis, spine midline without tenderness, normal curvature. NEURO: Mental Status AAOx4 - alert to person, place, time, events No facial droop, no forehead involvement. Motor: No focal weakness - strength 5/5 in bilateral UEs and LEs, proximal and distal, symmetric. Sensory: sensation intact to light touch globally. Gait normal: patient ambulated without ataxia into ED room. PSYCH: euthymic, cooperative, pleasant, appropriate speech Course Vital Signs Vital signs: Vital Signs Temperature 36.3 C L 08/25/24 11:49 Pulse 70 08/25/24 11:49 Respiratory Rate 16 08/25/24 11:49 Blood Pressure 161/84 H 08/25/24 11:49 Pulse Oximetry 95 08/25/24 11:49 Temperature 36.3 C L 08/25/24 11:49 Temperature Source Oral 08/25/24 11:49 Pulse 70 08/25/24 11:49 Respiratory Rate 16 08/25/24 11:49 Blood Pressure 161/84 H 08/25/24 11:49 Blood Pressure Position Sitting 08/25/24 11:49 Pulse Oximetry 95 08/25/24 11:49 Oxygen Delivery Method Room Air 08/25/24 11:49 Oxygen Flow Rate 0 08/25/24 11:49 Pain Level 0 08/25/24 11:49 Medical Decision Making This dictation utilizes [id number] dictation software and may contain unedited grammatical errors. 69 year-old male presents to ED today by POV/ambulating with a chief complaint of return of cough/cold symptoms after getting over a cold 3+ weeks ago, now having worsening productive sputum, mild SOB. Quality described as productive cough of green phlegm, mild SOB, feels clammy, no radiation to high fever, respiratory distress, nausea/vomiting, chest pain, profound lethargy. Severity is described as moderate. Palliating factors include taking OTC cold meds without relief. Provoking factors include nothing specific. Events leading up to the incident/Associated Symptoms: Patient is vaccinated for Covid. Patients' medical history: Smoking history, chronic pain syndrome, remote history of hepatitis B, GERD. Family and social history: Noncontributory. Pertinent exam findings / vital signs include rhonchi right base, no hypoxia, benign cardiac exam, benign abdomen, afebrile and nontoxic. Differential / pathologies of concern include pneumonia, URI, unlikely PTX, not ACS. Diagnostic studies of: -Covid/Flu/RSV PCR, CXR. -viral PCR swab neg -XR Chest shows RLL atelectasis, with patients presentation, treating as PNA Interventions of: -Dual antibiotic coverage for pneumonia. ED Course/Assessment/Plan: 69-year-old male presents with biphasic onset had a cold about 3 to 4 weeks ago with a brief period of remission now having worsening productive cough with green phlegm, mild shortness of breath, overall his vitals are stable and has no chest pain, XR chest shows right lower lobe atelectasis plan treating for pneumonia, viral PCR swab is negative counseled on symptomatic treatment at home with OTC cold meds and strict return criteria for any worsening despite treatment or any other emergent concerns. Findings not consistent with respiratory failure, toxic vitals. Disposition of pneumonia. Patient verbalized understanding of the plan and return to ED criteria and engaged in shared decision making. Medical Records Medical records reviewed: Yes I reviewed the patient's medical records. Imaging Data Radiologic Study: Attestation: I personally reviewed and interpreted this imaging study as follows: Imaging: X-Ray Radiologist's impression: Exam: XR Chest Exam date and time: 08/25/2024 12:23 PM Age: 69 years old Clinical indication: Other: Cough x3 weeks TECHNIQUE: Imaging protocol: Radiologic exam of the chest. Views: 2 views. COMPARISON: CT THORAX ABDOMEN CTA 12/28/2020 12:51 PM FINDINGS: Lungs: Minor right lower lobe subsegmental atelectasis. No infiltrate. Pleural spaces: Unremarkable. No pleural effusion. No pneumothorax. Heart/Mediastinum: Unremarkable. No cardiomegaly. Bones/joints: Mild nonacute L1 compression fracture. IMPRESSION: Minor right lower lobe subsegmental atelectasis. Dictated and Authenticated by: Madi Herndon MD. Lab Data Lab results reviewed: Yes I reviewed the patient's lab results. Labs: Laboratory Tests Range/Units 08/25/24 12:10 COVID-19 Source Not Applicable SARS-CoV-2 (PCR) (Negative) Negative Influenza Type A (PCR) (Negative) Negative Influenza Type B (PCR) (Negative) Negative RSV (PCR) (Negative) Negative Quality:SDOH Health Related Social Needs: No Data to Display PFSH All Active Problems (Updated 08/25/24 @ 13:54 by RADHA Dominique) Pneumonia (Acute) Posterior subcapsular age-related cataract, right eye (Acute) Cortical age-related cataract, right eye (Acute) Nuclear age-related cataract, right eye (Acute) Left knee pain (Acute) Lumbar disc herniation with radiculopathy (Acute) Chronic pain syndrome (Acute 08/30/17) Pancolonic diverticulosis (Acute 02/07/17) Lumbar stenosis (Acute) Left lumbar radiculopathy (Acute) L1 vertebral fracture (Acute 08/24/17) Insomnia (Acute) Diverticulitis (Acute 12/02/17) Depressive disorder (Acute) Chronic low back pain (Acute) S/P BURST FRACTURE Lesion of skin of face (Chronic) Hepatitis B (Acute) Encounter for annual physical exam (Acute) Right cervical radiculopathy (Acute) short course of steroids orally PT referral Phlegm in throat (Acute) Elevated blood protein (Acute) Muscle cramps (Acute) Aortic aneurysm (Chronic) Deviated nasal septum (Acute) Nasal polyps (Acute) GERD (gastroesophageal reflux disease) (Chronic) Elevated blood pressure reading without diagnosis of hypertension (Acute) Lumbosacral radiculopathy at L5 (Acute) Lumbar spondylosis (Acute) Medical History (Updated 08/25/24 @ 13:54 by RADHA Dominique) Smoker Depressive disorder Chronic low back pain Surgical History H/O Spinal surgery L2-S1 laminectomy with wedge placement, [facility] [place] 04/2023 Spinal Fusion (~03/1997) L2,L3,L4, l5 and s1 NASAL POLYP REMOVAL Meniscectomy RIGHT X 3 LEFT x 2 MRI/SPINE (~2006) LAMINECTOMY L2,L3,L4 03/02/18 L4-L5 @ [facility] [place] Repair of inguinal hernia RIGHT Colonoscopy - MAC (02/07/17) Colonoscopy - MAC (~2006) CT/SPINE (~2003) Family History Sister No problems noted. Sister No problems noted. Sister No problems noted. Maternal Grandfather No problems noted. Paternal Grandfather No problems noted. Maternal Grandmother No problems noted. Sister No problems noted. Paternal Grandmother Diabetes Son No problems noted. Son No problems noted. Mother , 97 Alcohol abuse Father , 74 No problems noted. Social History Smoking/Tobacco Use Status: Never Tobacco: How many years used: 25 Quit status: considering quitting (vapes) Smoking risk assessment performed?: Yes Alcohol Intake: current Alcohol Intake frequency: a few times a week Alcohol type: beer Drug use: Daily Substance use type: marijuana Caregiver/Support person: No Household members: spouse Housing: house Communication Needs: None Do you need help understanding health information?: Never Pets and animals: Yes Pets and animals: cat(s) and dog(s) Sexually active: Yes Do you think of yourself as: straight/heterosexual Current gender identity: male What is your relationship status?: How often do you talk on the phone with friends or family?: once per week How often do you get together with friends or relatives?: once per week How often do you attend scientologist or lutheran services?: 1-3 times per year Do you belong to any clubs or organized social groups?: yes Panel score (0-1 are the most socially isolated patients): 2 What type of physical activity do you participate in: walking Duration: 15-30 minutes/day Frequency: 5-6 times per week Sylvia/Mu-Ism: Holiness Special sylvia needs: No Seatbelt use: always Helmet use: Yes Helmet use: always Drive intox or ride w/intox sanitation truck driver: No Do you feel safe at home: Yes Do you feel safe in your relationship?: Yes
--- NOTE | 2024-08-25 12:00 | DI.RAD_ITS ---
Exam(s) XR CHEST 2V PA LATERAL EXAM: XR CHEST 2V PA LATERAL CLINICAL HISTORY: cough x 3 weeks TECHNIQUE: 2D digital imaging was performed of the chest. Two images were obtained. PA and lateral views were obtained. COMPARISON: CR XR CHEST 2V PA LATERAL from 12/28/2020 FINDINGS: MEDIASTINUM: Normal. HEART: Normal. PULMONARY VASCULATURE: Normal. LUNGS: No focal infiltrates are present. The lungs are hyperinflated suggesting underlying COPD. PLEURAL SPACE: No pleural effusion or pneumothorax. BONE:Within normal limits for the patient's age. There is an old L1 compression deformity which is s table. OTHER FINDINGS:Normal. IMPRESSION: No focal infiltrates to suggest pneumonia. DATA REPOSITORY: RADIATION DOSE DELIVERED:
[2024-08-25 12:54] LABS: COVID-19 PCR Negative (Negative); Influenza A PCR Negative (Negative); Influenza B PCR Negative (Negative); RSV PCR Negative (Negative)
--- NOTE | 2024-08-25 13:38 | DI.VRAD_ITS ---
PROCEDURE INFORMATION: Exam: XR Chest Exam date and time: 08/25/2024 12:23 PM Age: 69 years old Clinical indication: Other: Cough x3 weeks TECHNIQUE: Imaging protocol: Radiologic exam of the chest. Views: 2 views. COMPARISON: CT THORAX ABDOMEN CTA 12/28/2020 12:51 PM FINDINGS: Lungs: Minor right lower lobe subsegmental atelectasis. No infiltrate. Pleural spaces: Unremarkable. No pleural effusion. No pneumothorax. Heart/Mediastinum: Unremarkable. No cardiomegaly. Bones/joints: Mild nonacute L1 compression fracture. IMPRESSION: Minor right lower lobe subsegmental atelectasis. Dictated and Authenticated by: Madi Herndon MD. Ordering:LIDIA Perera MD
== END 2024-08-25 14:09 | disposition home or self-care (01) ==
PROVIDERS: Emergency Provider Physician Assistant; PCP Family Medicine
DX: J18.9 Pneumonia, unspecified organism (principal); Z98.1 Arthrodesis status
CPT/HCPCS: 87637; 99284; 71046; 99283

== ENCOUNTER 2024-10-11 06:42 | Day surgery (SDC) | payer MEDICARE, MEDICAID, SELFPAY ==
--- NOTE | 2024-10-10 18:30 | W.PREOPHP ---
Assessment and Plan Assessment and plan (1) Posterior subcapsular age-related cataract, right eye: Status: Acute Assessment and plan: Assessment: Visually significant cataract right eye. Plan: Cataract extraction with lens implant of the right eye (2) Cortical age-related cataract, right eye: Status: Acute Assessment and plan: Assessment: Visually significant cataract right eye. Plan: Cataract extraction with lens implant of the right eye (3) Nuclear age-related cataract, right eye: Status: Acute Assessment and plan: Assessment: Visually significant cataract right eye. Plan: Cataract extraction with lens implant of the right eye History of Present Illness History of Present Illness Chief Complaint: Progressive decreased vision right eye Narrative: The patient is a 69-year-old male with history of myopia who previously underwent laser vision correction in the . He developed a significant cataract in the left eye, and underwent cataract surgery in the left eye in July 2023. He now presents with complaints of progressive decreased vision in his right eye. On examination he was noted to have nuclear/cortical/posterior subcapsular cataract. The option of cataract surgery in the right eye was offered to the patient and he wished to proceed. See office notes for detailed information. Review of Systems All systems reviewed & are unremarkable except as noted in HPI and below PFSH All Active Problems Posterior subcapsular age-related cataract, right eye (Acute) Cortical age-related cataract, right eye (Acute) Nuclear age-related cataract, right eye (Acute) Left knee pain (Acute) Lumbar disc herniation with radiculopathy (Acute) Chronic pain syndrome (Acute 08/30/17) Pancolonic diverticulosis (Acute 02/07/17) Lumbar stenosis (Acute) Left lumbar radiculopathy (Acute) L1 vertebral fracture (Acute 08/24/17) Insomnia (Acute) Diverticulitis (Acute 12/02/17) Depressive disorder (Acute) Chronic low back pain (Acute) S/P BURST FRACTURE Lesion of skin of face (Chronic) Hepatitis B (Acute) Encounter for annual physical exam (Acute) Right cervical radiculopathy (Acute) short course of steroids orally PT referral Phlegm in throat (Acute) Elevated blood protein (Acute) Muscle cramps (Acute) Aortic aneurysm (Chronic) Deviated nasal septum (Acute) Nasal polyps (Acute) GERD (gastroesophageal reflux disease) (Chronic) Elevated blood pressure reading without diagnosis of hypertension (Acute) Lumbosacral radiculopathy at L5 (Acute) Lumbar spondylosis (Acute) Medical History Smoker Depressive disorder Chronic low back pain Surgical History H/O Spinal surgery L2-S1 laminectomy with wedge placement, [facility] [place] Spinal Fusion (~03/1997) L2,L3,L4, l5 and s1 NASAL POLYP REMOVAL Meniscectomy RIGHT X 3 LEFT x 2 MRI/SPINE (~2006) LAMINECTOMY L2,L3,L4 03/02/18 L4-L5 @ [facility] [place] Repair of inguinal hernia RIGHT Colonoscopy - MAC (02/07/17) Colonoscopy - MAC (~2006) CT/SPINE (~2003) Family History Sister No problems noted. Sister No problems noted. Sister No problems noted. Maternal Grandfather No problems noted. Paternal Grandfather No problems noted. Maternal Grandmother No problems noted. Sister No problems noted. Paternal Grandmother Diabetes Son No problems noted. Son No problems noted. Mother , 97 Alcohol abuse Father , 74 No problems noted. Social History Smoking/Tobacco Use Status: Former Tobacco Use Quit Date: 11/06/17 Tobacco: How many years used: 25 Quit status: considering quitting (vapes) Smoking risk assessment performed?: Yes Alcohol Intake: current Alcohol Intake frequency: a few times a week Alcohol type: beer Drug use: Daily Substance use type: marijuana Caregiver/Support person: No Household members: spouse Housing: house Communication Needs: None Do you need help understanding health information?: Never Pets and animals: Yes Pets and animals: cat(s) and dog(s) Sexually active: Yes Do you think of yourself as: straight/heterosexual Current gender identity: male What is your relationship status?: How often do you talk on the phone with friends or family?: once per week How often do you get together with friends or relatives?: once per week How often do you attend presybeterian or confucianism services?: 1-3 times per year Do you belong to any clubs or organized social groups?: yes Panel score (0-1 are the most socially isolated patients): 2 What type of physical activity do you participate in: walking Duration: 15-30 minutes/day Frequency: 5-6 times per week Sylvia/Zoroastrianism: Zoroastrian Special sylvia needs: No Seatbelt use: always Helmet use: Yes Helmet use: always Drive intox or ride w/intox lifter driver: No Do you feel safe at home: Yes Do you feel safe in your relationship?: Yes Meds Allergies and Home Medications Allergies Allergy/AdvReac Type Severity Reaction Status Date / Time No Known Allergies Allergy Verified 10/11/24 07:01 Home Medications ?Medication ?Instructions ?Recorded ?Confirmed ?Type acetaminophen 500 mg capsule 1,000 mg PO Q6H PRN 03/28/23 10/11/24 History Exam Eyes Other: Most recent ocular examination revealed uncorrected visual acuity of 20/30 OD, 20/60 OS. Extract motility is normal. Intraocular pressure was 17 in the left eye. Slit-lamp examination reveals a well-positioned PCIOL OS with clear posterior capsule. 1-2+ nuclear with trace cortical and posterior subcapsular cataract in the right eye. Funduscopic examination shows disc cupping of 0.3 OU with normal vessels, macula, peripheral retina and vitreous, although there are vitreous floaters in both eyes. Resp Auscultation: clear to auscultation bilaterally Cardio Rate: regular rate Rhythm: regular rhythm
[2024-10-11 06:51] VITALS: BP 168/101; PULSE 63; RESP 16; TEMP 36.2; O2SAT 96
[2024-10-11] MEDS: Tropicam./Phenyleph. (1/2.5%) 5 ML BTL OD ×3 (06:57→07:09)
--- NOTE | 2024-10-11 07:17 | W.ANESPRE ---
General Info Date of Service Date Performed: 10/11/24 Height: 5 ft 11 in Weight: 91 kg Body Mass Index (BMI): 27.9 Surgical Procedure: Operation Date: 10/11/24 08:40 Proposed Procedure Side Surgeon p Cataract Extraction with IOL Implant Right Chidi Brooke MD Meds Allergies and Home Medications Allergies Allergy/AdvReac Type Severity Reaction Status Date / Time No Known Allergies Allergy Verified 10/11/24 07:01 Home Medication ?Medication ?Instructions ?Recorded acetaminophen 500 mg capsule 1,000 mg PO Q6H PRN 03/28/23 Current Visit Medications: Current Medications Generic Name Dose Route Start Last Admin Trade Name Freq PRN Reason Stop Dose Admin Acetaminophen 1,000 mg 10/11/24 06:00 Acetaminophen 500 Mg Tab PO 11/10/24 05:59 Q4H PRN PRN Balanced Salt Solution 500 ml 10/11/24 06:00 Balanced Salt Soln.-Plus 500 Ml Bag OP 11/10/24 05:59 DIRECTED CARLOS Miscellaneous Medication 0 ml 10/11/24 06:00 Prednisolone 1%, Moxifloxacin 0.5%, Bromfenac 0.09% 5.6ml Btl OD 11/10/24 05:59 DIRECTED CARLOS Miscellaneous Medication 0 ml 10/11/24 06:00 10/11/24 07:09 Tropicam./Phenyleph. (1/2.5%) 5 Ml Btl OD 11/10/24 05:59 1 drp DIRECTED CARLOS Administration Tetracaine HCl 0 ml 10/11/24 06:00 Tetracaine 0.5% 4 Ml Btl OD 11/10/24 05:59 DIRECTED CARLOS PFSH Active Problems Active Problems: Problem Status Onset Code Posterior subcapsular age-related cataract, right eye Acute H25.041 Cortical age-related cataract, right eye Acute H25.011 Nuclear age-related cataract, right eye Acute H25.11 Left knee pain Acute M25.562 Lumbar disc herniation with radiculopathy Acute M51.16 Chronic pain syndrome Acute 08/30/17 G89.4 Pancolonic diverticulosis Acute 02/07/17 K57.30 Lumbar stenosis Acute M48.061 Left lumbar radiculopathy Acute M54.16 L1 vertebral fracture Acute 08/24/17 S32.019A Insomnia Acute G47.00 Diverticulitis Acute 18 K57.92 Depressive disorder Acute F32.9 Chronic low back pain Acute M54.5, G89.29 Lesion of skin of face Chronic L98.9 Hepatitis B Acute B19.10 Encounter for annual physical exam Acute Z00.00 Right cervical radiculopathy Acute M54.12 Phlegm in throat Acute R09.89 Elevated blood protein Acute E88.09 Muscle cramps Acute R25.2 Aortic aneurysm Chronic I71.9 Deviated nasal septum Acute J34.2 Nasal polyps Acute J33.9 GERD (gastroesophageal reflux disease) Chronic K21.9 Elevated blood pressure reading without diagnosis of hypertension Acute R03.0 Lumbosacral radiculopathy at L5 Acute M54.17 Lumbar spondylosis Acute M47.816 Nuclear age-related cataract, left eye Resolved H25.12 Cortical age-related cataract, left eye Resolved H25.012 Posterior subcapsular age-related cataract of left eye Resolved H25.042 Medical History Medical History Smoker Depressive disorder Chronic low back pain Surgical History Surgical History H/O Spinal surgery L2-S1 laminectomy with wedge placement, [facility] [place] 04/2023 Spinal Fusion (~03/1997) L2,L3,L4, l5 and s1 NASAL POLYP REMOVAL Meniscectomy RIGHT X 3 LEFT x 2 MRI/SPINE (~2006) LAMINECTOMY L2,L3,L4 03/02/18 L4-L5 @ [facility] [place] Repair of inguinal hernia RIGHT Colonoscopy - MAC (02/07/17) Colonoscopy - MAC (~2006) CT/SPINE (~2003) Tobacco Smoking/Tobacco Use Status: Former Tobacco Use Passive smoking exposure: Yes Alcohol Alcohol Intake: current Alcohol intake frequency: a few times a week Alcohol type: beer Substance Use Substance use: Daily Substance use type: marijuana Vital Signs and Lab Results Vital Signs Most Recent Vital Signs in EMR: Most Recent Vital Signs Temp Pulse Resp BP Pulse Ox 36.2 C L 63 16 168/101 H 96 10/11/24 06:51 10/11/24 06:51 10/11/24 06:51 10/11/24 06:51 10/11/24 06:51 Lab Results Blood Type / Crossmatch: No Data to Display Complete Blood Count: No Data to Display Complete Metabolic Panel: No Data to Display Liver Function Panel: No Data to Display Coagulation Panel: No Data to Display Cardiac Panel: No Data to Display Arterial Blood Gas: No Data to Display Venous Blood Gas: No Data to Display Pancreas Panel: No Data to Display Thyroid Panel: No Data to Display Infectious Disease: No Data to Display Blood Cultures: No Data to Display Toxicology Panel: No Data to Display Imaging and Studies Imaging and Studies Study information below may be from another EMR and interpreted by another provider. Please see original notes in EMR for more complete details. EKG Summary: 12/28/20: Exam: Resting ECG Patient Location: E HR:55 bpm ECG Measurements Heart Rate 55 AXIS [place] 167 P 76 QRSd 109 QRS 30 QT 448 T14 QTc 430 Conclusion Sinus bradycardia...rate< 60 Anteroseptal infarct, old...Q >40mS, V1-V2 Stress Test Summary: 01/18/21: Stress ECG Conclusion 1. Electrocardiogram was normal 2. The patient exercised on the Wesley protocol and completed a workload of 13.44 METS, limited by fatigue 3. Normal heart rate and blood pressure response to exercise. The patient achieved 97% of predicted heart rate for age 4. Electrocardiographically there was no evidence of myocardial ischemiar 5. Rare PVCs were seen Ballesteros Treadmill Score is 10.4 which is Low risk. Anesthesia Assessment and Plan Anesthesia History Personal History: No History of Anesthesia Complications Family History: No Family History of Anesthesia Complications Exercise Tolerance Exercise Tolerance: Metabolic Equivalents>4 Pertinent Negatives Pertinent Negatives: No Symptoms of GERD, No Major Cardiovascular Symptoms or Complaints and No Major Pulmonary Symptoms or Complaints Cardiac & Pulmonary Exam Cardiac Exam: Normal S1/S2 Heart Sounds Pulmonary Exam: Clear Bilateral Breath Sounds Implantable Cardiac Device Does patient have a Pacemaker or an ICD?: No Airway Exam Known Difficult Airway: No Mallampati Class: 2 Mouth Opening: Normal (> 3cm) Thyromental Distance: Greater than 3 cm Neck Range of Motion: Full ROM Neck Circumference: Normal Teeth Condition: Normal Dentition ASA Classification ASA Score: ASA 2 Emergency Case?: No NPO Status NPO Status: NPO Clears >2 hours, Solids >8 hours Anesthesia Plan Resuscitation Status: Full Code Anesthesia Technique: MAC Anesthesia Airway Planned: Natural Airway Monitors Used: Standard Monitors
[2024-10-11 07:21] VITALS: BMI 27.9
[2024-10-11] MEDS: Tetracaine 0.5% 4 ML BTL OD (08:22)
[2024-10-11] MEDS: Povidone-Iodine Ophth 30 ML BTL (08:23)
[2024-10-11] MEDS: Duovisc Viscoelastic System EACH 1 EACH (08:29)
[2024-10-11] MEDS: Lidocaine 1% Pres-Free 5 ML VIAL (08:29)
[2024-10-11] MEDS: Balanced Salt Soln.-PLUS 500 ML BAG OP (08:29)
[2024-10-11] MEDS: Trypan Blue 0.06% 0.5 ML SYR (08:31)
[2024-10-11] MEDS: Prednisolone 1%, Moxifloxacin 0.5%, Bromfenac 0.09% 5.6ML BTL OD (08:52)
--- NOTE | 2024-10-11 08:54 | W.PM.DSUDISC ---
Date of service: 10/11/24 Discharge Plan Disposition Patient Disposition: Home Discharge Details Attending Provider: Chidi Brooke Primary Care Provider: Joon Cool Home Meds and New Rx's Prescriptions: No Action acetaminophen 500 mg capsule 1,000 mg PO Q6H PRN Discharge Instructions Stand Alone Forms: DSU Post-Op Cataract, Micaela Todd (DSU) Discharge Orders Discharge Orders: Discharge Order (Routine); Ordered 10/11/24 Ordered By: Chidi Brooke DS: Diagnosis Discharge Diagnosis (1) Posterior subcapsular age-related cataract, right eye: Status: Resolved (2) Cortical age-related cataract, right eye: Status: Resolved (3) Nuclear age-related cataract, right eye: Status: Resolved
--- NOTE | 2024-10-11 08:55 | ROE_ITS ---
Operative Note Operative Note PRE-OP DIAGNOSIS: Nuclear/cortical/posterior subcapsular cataract, right eye POST-OP DIAGNOSIS: same PROCEDURE: Cataract extraction using phacoemulsification with intraocular lens implant, right eye SURGEON: Chidi Brooke ANESTHESIA TYPE: Local By Surgeon and MAC Refer to Anesthesia Record ESTIMATED BLOOD LOSS: 0 PATHOLOGY: none sent COMPLICATIONS: None Patient was transported to: same day Patient's condition: stable Implants: Richard [employer] Richard Tecnis Eyhance [id number] Indications: Progressive visual loss due to cataract, right eye Procedure Description: CATARACT SURGERY OPERATIVE REPORT PREOPERATIVE DIAGNOSIS: 1. Nuclear/cortical/posterior subcapsular cataract, right eye POSTOPERATIVE DIAGNOSIS: Same OPERATION: 1. Cataract extraction using phacoemulsification with posterior chamber intraocular lens implant, right eye. IOL: IOL Animal Cruelty Investigation Supervisor/Model: Richard [employer] Richard Tecnis Eyhance [id number] IOL Power: + 19.5 diopters IOL Serial Number: [id number] Optic Diameter: 6.0mm Haptic/Overall Diameter: 13.0mm PHACO INFO: JimyBenchPrepon Vision System with OZil and Active Fluidics Cumulative Dispersed Energy (CDE): 5.29 seconds SURGEON: Chidi rBooke MD, MARCELO ANESTHESIA: Monitored Anesthesia Care (MAC), with local sub-tenon's anesthetic infiltration COMPLICATIONS: None SPECIMENS: None INDICATIONS FOR PROCEDURE: The patient is a 69-year-old male with history of diminished visual acuity in his right eye secondary to the development of nuclear/posterior subcapsular cataract he underwent myopic LASIK many years ago, and cataract surgery in the left eye last year. He is doing well postoperatively in his left eye, but no significant diminished visual acuity in his right eye secondary to the development of cataract. The option of cataract surgery was offered to the patient and he wished to proceed. See office notes for detailed information. PROCEDURE: The correct surgical eye was identified and marked as the right eye and the pupil was dilated in the preoperative area using mydriatics and cycloplegics. The dilated pupil size was 7.0 mm. The patient elected to proceed without oral sedation. The patient was brought to the operating room where cardiopulmonary monitoring was instituted and surgical time-out was perfo rmed, confirming the correct operative eye and IOL power. Topical anesthesia was administered and ophthalmic povidone-iodine 5% was instilled into the conjunctival fornices. The latosha-ocular area was prepped with Betadine 10% solution and draped in the usual sterile fashion for intraocular surgery, including an aperture drape. A Tegaderm transparent film dressing was cut in half and used to cover the lashes and lid margins. Care was taken to sequester the lashes and lid margins under the Tegaderm dressing. A lid speculum was placed between the lids of the operative eye and the Jimy LuxOR Revalia operating microscope was maneuvered into position. Kulwinder scissors were then used to make a conjunctival buttonhole approximately 6mm posterior to the limbus in the inferonasal quadrant. Blunt dissection was carried out to expose bare sclera, and a blunt-tipped sub-tenon?s anesthesia cannula was introduced and passed posteriorly along the globe where non- preserved plain lidocaine was injected into posterior sub-Tenon?s space. A sideport knife was used to make a paracentesis port. VisionBlue was injected into the anterior chamber and allowed to sit for 30 seconds. Intraocular phenylephrine/lidocaine was injected into the anterior chamber. The anterior chamber was filled with viscoelastic. A keratome knife was used to construct a 2-plane clear corneal tunnel extending 2.0mm into clear cornea. A flap was raised on the anterior capsule and capsulorhexis forceps were used to complete a continuous curvilinear capsulorhexis of 5.0 mm. Balanced salt solution was then used to perform cortical cleaving hydrodissection and nuclear hydrodelineation until the lens could be freely rotated within the capsular bag. The lens nucleus was then disassembled and removed within the capsular bag and iris plane using phacoemulsification. Residual cortical material was removed using the I/A handpiece. The posterior capsule was carefully polished to remove as much residual lens epithelial cells as safely possible. The capsular bag was then inflated and the anterior chamber deepened with cohesive viscoelastic. The lens implant described above was inserted into the capsular bag using the Richard and Tho Simplicity pre- loaded injector. A Kuglen hook was used to dial the IOL into position. Residual viscoelastic was then removed first from posterior to the IOL, then from the anterior chamber using the I/A handpiece. The lens implant was noted to center nicely within the capsular bag. The incisions were stromally hydrated, and the anterior chamber was reformed using BSS. Then 0.5cc of moxifloxacin 1.0mg/ml were injected into the capsular bag and anterior chamber. The incisions were checked with a Weck spear and found to be secure. Several drops of ophthalmic povidone-iodine 5% were then applied to the eye followed by two drops ocombination steroid/NSAID/antibiotic solution. The drapes were removed and a clear plastic protective eye shield was placed over the eye. The patient was then returned to Same Day Surgery in stable condition. Date of Procedure: 10/11/24
[2024-10-11 08:56] VITALS: BP 143/88; PULSE 64; RESP 18; TEMP 36.2; O2SAT 95
--- NOTE | 2024-10-11 09:01 | W.ANESPOSTOP ---
Postoperative Evaluation Date, Time and Location Date Performed: 10/11/24 Time Performed: 09:01 Patient Location: Day Surgery Unit Vital Signs Most Recent Imported Vital Signs: Most Recent Vital Signs Temp Pulse Resp BP Pulse Ox 36.2 C L 64 18 143/88 H 95 10/11/24 08:56 10/11/24 08:56 10/11/24 08:56 10/11/24 08:56 10/11/24 08:56 Pain Score Most Recent Pain Score: Most Recent Pain Score Pain Level 0 10/11/24 08:56 Assessment Mental Status: Awake (Alert & Oriented to Patient Baseline) Airway and Respiratory Function: Patent airway with normal (patient baseline) respiratory exam Cardiovascular Function: Hemodynamically Stable Hydration Status: Adequately Hydrated Nausea & Vomiting: No Nausea or Vomiting Pain: Pt. Denies Any Pain Peripheral Nerve Block: Patient did not receive a nerve block
== END 2024-10-11 09:10 | disposition home or self-care (01) ==
LOC: SUR 06:42
PROVIDERS: PCP Family Medicine; Visit Provider Ophthalmology
PROC: (CPT 66984; principal; 2024-10-11 08:30)
DX: H25.041 Posterior subcapsular polar age-related cataract, right eye (principal); H25.011 Cortical age-related cataract, right eye; H25.11 Age-related nuclear cataract, right eye; Z98.42 Cataract extraction status, left eye
CPT/HCPCS: 66984; 00123; V2632; J2003

== ENCOUNTER 2025-01-21 08:12 | Outpatient (CLI) | payer MEDICARE, MEDICAID, SELFPAY ==
--- NOTE | 2025-01-21 08:00 | RT.EKG_ITS ---
APPROVED REPORT Exam: Resting ECG Reason for Exam: pre op Patient Location: O HR:62 bpm ECG Measurements Heart Rate 62 AXIS [place] 163 P 70 QRSd 96 QRS 52 QT 396 T 20 QTc 402 Conclusion Sinus rhythm...normal P axis, V-rate 50- 99 Normal Electrocardiogram
== END 2025-01-21 08:13 | disposition home or self-care (01) ==
LOC: DI.CM 08:14
PROVIDERS: PCP Family Medicine; Visit Provider Nurse Practitioner Family
DX: Z01.818 Encounter for other preprocedural examination (principal)
CPT/HCPCS: 93010

== ENCOUNTER → 2025-07-31 08:30 | Outpatient (BNVA) | payer MEDICARE, MEDICAID, SELFPAY | PROVIDERS: PCP Family Medicine; Referring Provider Family Medicine; Visit Provider Student in an Organized Health Care Education/Training Program | DX: M17.12 Unilateral primary osteoarthritis, left knee (principal); M25.562 Pain in left knee; M25.561 Pain in right knee | CPT/HCPCS: 99214 ==